=== PATIENT | female | born 1970 | race Caucasian/White ===

== ENCOUNTER 2017-05-13 14:51 | Emergency (ER) | payer OTHER, SELFPAY ==
[2017-05-13 14:56] VITALS: BP 127/76; PULSE 142; RESP 16; TEMP 37.3; O2SAT 97; BMI 23.8
--- NOTE | 2017-05-13 15:07 | HMH.EDGENADL ---
ED Disposition Clinical Impression: Acute sinusitis Qualifiers: Sinusitis location: other Recurrence: not specified as recurrent Qualified Code(s): J01.80 - Other acute sinusitis Disposition: Home, Self-Care Condition on Discharge: Good Instructions: DI for Sinusitis, DI for Lumbar Puncture Additional Instructions: Tylenol for pain. Additional instructions for HEADACHE: See your physician as soon as possible for further evaluation. Return immediately if worsening headache, vomiting, problems with vision or speech, fever, numbness or weakness of the extremities, neck pain or stiffness. Prescriptions: cefUROXime axetil [Cefuroxime 500mg Tab] 500 mg PO BID #20 tab - Critical Care Critical Care Time: No Attestation: On , the high probability of a clinically significant, sudden or life threatening deterioration of the following system(s) required my full and direct attention, intervention and personal management. The time I documented below is in addition to time spent performing reported procedures but includes the following listed in this critical care notation. Medical Decision Making Vital Signs: 05/13/17 14:56 05/13/17 18:19 05/13/17 18:43 Temperature 99.2 F 98.3 F 98.3 F Temperature Source Oral Temporal Artery Scan Oral Pulse Rate 109 H Pulse Rate [Right Brachial] 142 H 108 H Respiratory Rate 16 16 20 Blood Pressure 110/71 Blood Pressure [Right Arm] 127/76 110/71 Blood Pressure Mean [Right Arm] 93 84 Blood Pressure Source Automatic Cuff Blood Pressure Source [Right Arm] Automatic Cuff Automatic Cuff Blood Pressure Position Sitting Blood Pressure Position [Right Arm] Sitting Sitting 02 Sat by Pulse Oximetry 97 100 Oxygen Delivery Method Room Air Room Air Room Air - Lab Data Lab Results 05/13/17 15:06: WBC 6.9, RBC 4.16 L, Hgb 13.7, Hct 41.8, MCV 100.4 H, MCH 33.0 H, MCHC 32.9, RDW 12.3, Plt Count 177, MPV 7.8, Neut % (Auto) 83.4 H, Lymph % (Auto) 9.1 L, [place] % (Auto) 4.9, Eos % (Auto) 2.1, Baso % (Auto) 0.4, Neut # (Auto) 5.7, Lymph # (Auto) 0.6 L, [place] # (Auto) 0.3, Eos # (Auto) 0.2, Baso # (Auto) 0.0 05/13/17 15:06: Sodium 138, Potassium 3.4 L, Chloride 105, Carbon Dioxide 24, Anion Gap 12.4, BUN 7, Creatinine 1.01, Estimated Creat Clear 66, Estimated GFR 60, Est GFR ( Amer) 72, Glucose 141 H, Calcium 8.6, Total Bilirubin 0.4, AST 10 L, ALT 21, Alkaline Phosphatase 102, Total Protein 7.1, Albumin 3.4, Globulin 3.7 H, Albumin/Globulin Ratio 0.9 L 05/13/17 15:06: Lactic Acid 1.6 05/13/17 15:06: Influenza Type A Ag Negative, Influenza Type B Ag Negative, Group A Strep Rapid Negative 05/13/17 16:30: Urine Color Yellow, Urine Appearance Clear, Urine pH 6.5, Ur Specific [place] 1.020, Urine Protein Negative, Urine Glucose (UA) Negative, Urine Ketones Negative, Urine Blood Negative, Urine Nitrate Negative, Urine Bilirubin Negative, Urine Urobilinogen 0.2, Ur Leukocyte Esterase Negative, Urine RBC Occasional, Urine WBC None, Ur Squamous Epith Cells Occasional, Urine Bacteria Trace, Urine Mucus 2+ 05/13/17 16:50: CSF Volume 1, CSF Appearance Clear, CSF WBC 2, CSF RBC 68, CSF Mononuclear WBCs % TNP, CSF Polynuclear WBCs % TNP 05/13/17 16:50: CSF Glucose 63, CSF Total Protein 53.1 H 05/13/17 16:50: CSF Volume 1, CSF Appearance Clear, CSF WBC 1, CSF RBC 0, CSF Mononuclear WBCs % TNP, CSF Polynuclear WBCs % TNP Result diagrams: 05/13/17 15:06 05/13/17 15:06 Orders (Tests/Meds): ED MEDICATIONS Discontinued Medications Generic Name Dose Route Start Last Admin Trade Name Freq PRN Reason Stop Dose Admin Acetaminophen 1,000 mg 05/13/17 15:23 05/13/17 15:30 Acetaminophen 325mg Tab PO 05/13/17 15:24 1,000 mg ONCE ONE Administration Sodium Chloride 1,000 mls @ 999 mls/hr 05/13/17 15:15 05/13/17 15:11 Sod Chloride 0.9% 1000ml Bag IV 05/13/17 16:15 999 mls/hr .Q1H1M [place] Administration Ceftriaxone Sodium 1 gm/ 50 mls @ 100 mls/hr 05/13/17 17:30 05/13/17 17:39 Sodium C
--- NOTE | 2017-05-13 15:08 | XR_ITS ---
XR chest 2V HISTORY: Fever cough and congestion ITS.REASON: FLU LIKE SYMPTOMS ORDERING PHYSICIAN: Erickson Woodard MD PATIENT AGE: 46 years COMPARISON: None available FINDINGS: The cardiomediastinal silhouette and pulmonary vascularity are within normal limits. The lungs are clear without infiltrates, suspicious nodules, or pleural effusions. No acute bony abnormalities. IMPRESSION: Negative chest, no acute finding
--- NOTE | 2017-05-13 15:20 | CT_ITS ---
CT head/brain wo con HISTORY: ITS.REASON: headache ORDERING PHYSICIAN: Erickson Woodard MD PATIENT AGE: 46 years COMPARISON: None TECHNIQUE: Axial images obtained without contrast. Brain and bone windows reviewed. FINDINGS: No midline shift, mass effect, intracranial hemorrhage, hydrocephalus, or extra-axial fluid collection is evident. The calvarium has an unremarkable appearance. No mastoid effusion. There is opacification of the right aspect of the sphenoid sinus with moderate mucosal thickening of the left aspect of the sphenoid sinus and opacification of left ethmoid air cells.. IMPRESSION: 1. No acute intracranial findings. 2. Sinusitis.
[2017-05-13 15:21] LABS: Basophils % 0.4 % (0.1-2.0); Eosinophils # 0.2 K/mm3 (0.0-0.4); Eosinophils % 2.1 % (0.1-12.0); Hematocrit 41.8 % (37.0-47.0); Hemoglobin 13.7 g/dL (12.2-16.2); Lymphocytes # 0.6 K/mm3 (0.7-4.5); Lymphocytes % 9.1 K/mm3 (10-50); Mean Corpuscular HGB Conc 32.9 g/dL (31.8-35.4); Mean Corpuscular Volume 100.4 fl (81-99); Mean Platelet Volume 7.8 fl (7.4-10.4); Monocytes # 0.3 K/mm3 (0.1-1.0); Monocytes % 4.9 % (1.7-9.3); Neutrophils # 5.7 K/mm3 (1.8-7.8); Neutrophils % 83.4 % (37.0-80.0); Platelet Count 177 K/mm3 (142-424); Red Blood Count 4.16 M/mm3 (4.20-5.40); Red Cell Distribution Width 12.3 % (11.5-17.5); White Blood Count 6.9 K/mm3 (4.8-10.8)
[2017-05-13 15:33] LABS: Alanine Aminotransferase 21 U/L (12-78); Albumin Level 3.4 gm/dL (3.4-5.0); Albumin/Globulin Ratio 0.9 (1.1-1.8); Alkaline Phosphatase 102 U/L (46-116); Anion Gap 12.4 mEq/L (5-15); Aspartate Amino Transferase 10 U/L (15-37); Bilirubin,Total 0.4 mg/dL (0.2-1.0); Blood Urea Nitrogen 7 mg/dL (7-18); Calcium 8.6 mg/dL (8.5-10.1); Carbon Dioxide 24 mmol/L (21.0-32.0); Chloride 105 mmol/L (98-107); Creatinine Clearance Estimated 66 mL/min (0-300); Creatinine,Serum 1.01 mg/dL (0.55-1.02); Estimated Glomerular Filt Rate 60 ml/min (>60); GFR (African American) 72 ML/MIN (>60); Globulin 3.7 gm/dl (1.3-3.2); Glucose 141 mg/dL (74-106); Potassium 3.4 mmoL/L (3.5-5.1); Sodium 138 mmol/L (136-145); Total Protein,Serum 7.1 gm/dL (6.4-8.2)
[2017-05-13 15:35] LABS: Strep Scrn Group A (Rapid) Negative (Negative)
[2017-05-13 15:36] LABS: Lactic Acid 1.6 mmol/L (0.4-2.0)
[2017-05-13 16:32] LABS: Microscopic, Urine URINE MICROSCOPIC (MICROSCOPIC)
[2017-05-13 16:39] LABS: Appearance,Urine CLEAR (Clear); Bilirubin,Urine Negative (Negative); Blood, Urine Negative (Negative); Color,Urine YELLOW (Yellow); Glucose,Urine (UA) Negative (Negative); Ketones,Urine Negative (Negative); Leukocyte Esterase,Urine Negative (Negative); Nitrate,Urine Negative (Negative); PH,Urine 6.5 (5.0-8.5); Protein,Urine Negative (Negative); Urobilinogen,Urine 0.2 EU/dl (0.2)
[2017-05-13 17:27] LABS: RBC,Urine Occasional #/hpf (0-3); Squamous Epithelial Cell,Urine Occasional #/hpf (0-5)
[2017-05-13 17:28] LABS: Bacteria,Urine Trace /lpf; Mucus,Urine 2+ /lpf
[2017-05-13 17:39] LABS: Appearance,CSF Clear (Clear); Volume,CSF 1 mL
[2017-05-13 17:40] LABS: Appearance,CSF Clear (Clear); Red Blood Cell,CSF 68 cells/uL (0); Volume,CSF 1 mL; White Blood Cell,CSF 2 cells/uL (0-5)
[2017-05-13 17:41] LABS: Red Blood Cell,CSF 0 cells/uL (0); White Blood Cell,CSF 1 cells/uL (0-5)
[2017-05-13 17:43] LABS: Glucose,CSF 63 mg/dL (40-70); Total Protein,CSF 53.1 mg/dL (15-45)
[2017-05-13 18:19] VITALS: BP 110/71; PULSE 108; RESP 16; TEMP 36.8; O2SAT 100
[2017-05-13 18:43] VITALS: BP 110/71; PULSE 109; RESP 20; TEMP 36.8; O2SAT 98
== END 2017-05-13 18:42 | disposition home or self-care (01) ==
PROVIDERS: Emergency Provider Emergency Medicine
DX: J01.80 Other acute sinusitis (principal)
CPT/HCPCS: 62272; 62270; 70450; 71046; 80053; 81001; 82945; 83605; 84155; 85025; 87040; 87070; 87205; 87275; 87276; 87430; 89051; 96365; 96367; 99284

== ENCOUNTER 2017-05-17 10:24 | Emergency (ER) | payer OTHER, SELFPAY ==
[2017-05-17 10:26] VITALS: BP 108/50; PULSE 63; RESP 14; TEMP 36.9; O2SAT 100; BMI 23.8
[2017-05-17 12:26] VITALS: BP 102/61; PULSE 68; RESP 20; O2SAT 99
--- NOTE | 2017-05-17 14:38 | CT_ITS ---
CT cervical spine wo con CLINICAL INDICATION: ITS.REASON: neck pain ORDERING PHYSICIAN: Miky Samaniego MD PATIENT AGE: 46 years COMPARISON: None FINDINGS: There is normal alignment. There is slight reversal of cervical lordosis which could be due to patient positioning or muscle spasm. No fracture or dislocation. No lytic or blastic change. C2-C3, C3-C4, C4-C5 is an unremarkable appearance. Minimal degenerative disc disease at C5-C6 with slight decrease in the disc space. C6-C7 and C7-T1 have an unremarkable appearance. No acute finding lung apices. The right lobe of the thyroid gland is slightly enlarged. There are scattered small lymph nodes in the neck. There is opacification of the right sphenoid sinus and moderate mucosal thickening of the left sphenoid sinus as well as opacified left ethmoid air cells. IMPRESSION: 1. Mild degenerative disc disease C5-C6. 2. Slight reversal cervical lordosis patient positioning or muscle abdomen. 3. Sinusitis
--- NOTE | 2017-05-17 16:16 | HMH.EDNECK ---
ED Disposition Clinical Impression: Disc disorder of cervical region Disposition: Home, Self-Care Condition on Discharge: Good Instructions: Degenerative Disc Disease, DI for Neck Pain Additional Instructions: Please take the medications prescribed as directed, follow-up with 1 of the orthopedic surgeons listed (Dr. Grady, Dr. Zelaya or Dr. Saavedra) at your earliest convenience. Please ask your family physician to refer him to physical therapy. Prescriptions: Cyclobenzaprine HCl [Flexeril 10mg tablet] 10 mg PO TID 30 Days #90 tab Referrals: Adama Grady [Referring] - Alexx Moss MD [Staff Physician] - El Saavedra MD [Staff Physician] - Time of Disposition: 16:17 - Critical Care Critical Care Time: No Attestation: On 05/17/17, the high probability of a clinically significant, sudden or life threatening deterioration of the following system(s) required my full and direct attention, intervention and personal management. The time I documented below is in addition to time spent performing reported procedures but includes the following listed in this critical care notation. Medical Decision Making - Medical Records Medical records reviewed: Yes: I reviewed the patient's medical records. Vital Signs: 05/17/17 10:26 05/17/17 12:26 05/17/17 16:46 Temperature 98.5 F 98.0 F Temperature Source Oral Oral Pulse Rate 58 L Pulse Rate [Right Brachial] 63 68 Respiratory Rate 14 20 20 Blood Pressure 106/52 Blood Pressure [Right Arm] 108/50 102/61 Blood Pressure Mean [Right Arm] 69 74 Blood Pressure Source Automatic Cuff Blood Pressure Source [Right Arm] Automatic Cuff Automatic Cuff Blood Pressure Position Sitting Blood Pressure Position [Right Arm] Sitting Sitting 02 Sat by Pulse Oximetry 100 99 Oxygen Delivery Method Room Air Room Air Room Air - CT Data CT Scan: C-Spine Time Received: 16:[address] Reviewed: Yes: I have reviewed the patient's CT results Findings Narrative: C5-C6 disk degeneration - Christian Inquiry Pt receiving controlled substance: No - Reevaluation(s) Time: 16:10 Reevaluation #1: Advised patient to follow-up with an orthopedic surgeon, prescribe her Flexeril. At this time she has no neurological deficits in upper extremities, however MRI of the C-spine would be beneficial for diagnosis. Neck Pain/Injury HPI - General Chief Complaint: Neck Pain/Injury Stated Complaint: neck and spine pain, no ao Limitations: No Limitations - History of Present Illness HPI Narrative: Patient is a 46-year-old lady presented emergency room with neck pain off and on for the past 2 weeks. She states the pain only occurs in upright position, after 40 minutes of being erect. She denies any neurological deficit in upper extremities, any trauma. She was here a few days ago with same complaint, the time she underwent an LP, blood work, CT scan head and a chest X ray. 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 MD complaint: neck pain Onset (ago): week(s) (2) Associated symptoms: none - Related Data Home Medications Medication Instructions Recorded Confirmed Cholecalciferol (Vitamin D3) 8,000 unit PO DAILY 05/13/17 05/13/17 [Vitamin D3 1,000 Unit Cap] Previous Rx's Medication Instructions Recorded cefUROXime axetil [Cefuroxime 500 mg PO BID #20 tab 05/13/17 500mg Tab] Cyclobenzaprine HCl [Flexeril 10mg 10 mg PO TID 30 Days #90 tab 05/17/17 tablet] Allergies Allergy/AdvReac Type Severity Reaction Status Date / Time Penicillins Allergy Verified 05/13/17 15:05 [facility] History I have reviewed the patient's past medical history: Yes Medical History: Denies:: Cancer, Diabetes Mellitus Type 1, Diabetes Mellitus Type 2, Internal Pacemaker, MRSA Other Surgeries: No: Pacemaker Amputation: No Fractures: No - *Social History Smoking Status: Current every day smoker Tobacco Type: cigarette
[2017-05-17 16:46] VITALS: BP 106/52; PULSE 58; RESP 20; TEMP 36.7; O2SAT 98
== END 2017-05-17 16:48 | disposition home or self-care (01) ==
PROVIDERS: Emergency Provider Emergency Medicine; PCP Family Medicine
DX: M50.30 Other cervical disc degeneration, unspecified cervical region (principal); Z79.899 Other long term (current) drug therapy; Z88.0 Allergy status to penicillin; Z72.0 Tobacco use
CPT/HCPCS: 72125; 99281

== ENCOUNTER 2020-09-04 21:27 | Emergency (ER) | payer OTHER, SELFPAY ==
[2020-09-04 21:36] VITALS: BP 144/79; PULSE 83; RESP 18; TEMP 36.9; O2SAT 98; BMI 25.6
--- NOTE | 2020-09-04 21:47 | CT_ITS ---
PROCEDURE INFORMATION: Exam: CT Abdomen And Pelvis With Contrast Exam date and time: 09/04/2020 9:47 PM Age: 50 years old Clinical indication: Abdominal pain; Generalized; Additional info: Abd pain TECHNIQUE: Imaging protocol: Computed tomography of the abdomen and pelvis with contrast. Radiation optimization: All CT scans at this facility use at least one of these dose optimization techniques: automated exposure control; mA and/or kV adjustment per patient size (includes targeted exams where dose is matched to clinical indication); or iterative reconstruction. Contrast material: ISOVUE; Contrast volume: 75 ml; Contrast route: IV; COMPARISON: No relevant prior studies available. FINDINGS: Liver: Normal. No mass. Gallbladder and bile ducts: Normal. No calcified stones. No ductal dilation. Pancreas: Normal. No ductal dilation. Spleen: Normal. No splenomegaly. Adrenal glands: Normal. No mass. Kidneys and ureters: Normal. No hydronephrosis. Stomach and bowel: Sigmoid colon diverticula. There is abnormal wall thickening involving the proximal small bowel loops. Appendix: No evidence of appendicitis. Intraperitoneal space: Unremarkable. No free air. No significant fluid collection. Vasculature: Unremarkable. No abdominal aortic aneurysm. Lymph nodes: Retroperitoneal adenopathy. Urinary bladder: Unremarkable as visualized. Reproductive: Bilateral tubal ligation clips noted. Bones/joints: Unremarkable. No acute fracture. Soft tissues: Unremarkable. IMPRESSION: Abnormal wall thickening involving the proximal small bowel loops concerning for enteritis.
--- NOTE | 2020-09-04 22:02 | HMH.EDNVD ---
ED Disposition Clinical Impression: Abdominal pain Qualifiers: Abdominal location: epigastric Qualified Code(s): R10.13 - Epigastric pain Disposition: Home, Self-Care Condition on Discharge: Good Instructions: DI for Acute Abdominal Pain Additional Instructions: use meds and see pcp for follow up Prescriptions: Pantoprazole Sodium [Protonix 40mg tablet] 40 mg PO HS #30 tab Transmission Status: Pending to [id number] Referrals: Destiny Castro [Primary Care Provider] - - Critical Care Critical Care Time: No Attestation: On 09/04/20, the high probability of a clinically significant, sudden or life threatening deterioration of the following system(s) required my full and direct attention, intervention and personal management. The time I documented below is in addition to time spent performing reported procedures but includes the following listed in this critical care notation. Medical Decision Making - Medical Records Medical records reviewed: Yes: I reviewed the patient's medical records. - Christian Inquiry Pt receiving controlled substance: No Vital Signs: 09/04/20 21:36 Temperature 98.5 F Temperature Source Oral Pulse Rate [Right] 83 Respiratory Rate 18 Blood Pressure [Right Arm] 144/79 H Blood Pressure Mean [Right Arm] 100 Blood Pressure Source [Right Arm] Automatic Cuff Blood Pressure Position [Right Arm] Sitting 02 Sat by Pulse Oximetry 98 Oxygen Delivery Method Room Air - Lab Data Lab results reviewed: Yes: I reviewed the patient's lab results. Lab Results 09/04/20 21:54: Urine Color Yellow, Urine Appearance Sl cloudy, Urine pH 5.5, Ur Specific [place] >= 1.030, Urine Protein Negative, Urine Glucose (UA) Negative, Urine Ketones Negative, Urine Blood Trace-i, Urine Nitrate Negative, Urine Bilirubin Negative, Urine Urobilinogen 0.2, Ur Leukocyte Esterase Negative, Urine WBC Occasional, Ur Squamous Epith Cells 3-5, Urine Bacteria Trace, Urine Mucus 1+ 09/04/20 21:54: WBC 11.1 H, RBC 4.38, Hgb 14.7, Hct 43.5, MCV 99.4 H, MCH 33.6 H, MCHC 33.8, RDW 12.5, Plt Count 229, MPV 7.7, Neut % (Auto) 52.6, Lymph % (Auto) 41.2, [place] % (Auto) 4.3, Eos % (Auto) 1.4, Baso % (Auto) 0.5, Neut # (Auto) 5.8, Lymph # (Auto) 4.6 H, [place] # (Auto) 0.5, Eos # (Auto) 0.2, Baso # (Auto) 0.1, ESR 25 H 09/04/20 21:54: Sodium 136, Potassium 3.6, Chloride 106, Carbon Dioxide 25, Anion Gap 8.6, BUN 11, Creatinine 1.00, Estimated Creat Clear 69, Estimated GFR 59, Est GFR ( Amer) 72, Glucose 103 H, Calcium 9.1, Total Bilirubin 0.4, AST 29, ALT 18, Alkaline Phosphatase 107, C-Reactive Protein 0.8, Total Protein 7.2, Albumin 4.1, Globulin 3.1, Albumin/Globulin Ratio 1.3, Amylase 149 H, Lipase 173, Procalcitonin 0.032 09/04/20 22:00: Troponin I < 0.01 Result diagrams: 09/04/20 21:54 09/04/20 21:54 Orders (Tests/Meds): ED MEDICATIONS Generic Name Dose Route Start Last Admin Trade Name Freq PRN Reason Stop Dose Admin Sodium Chloride 1,000 mls @ 999 mls/hr 09/04/20 22:00 09/04/20 22:03 Sod Chlor 0.9% 1000ml Bag IV 09/04/20 23:00 999 mls/hr .Q1H1M [place] Administration Sodium Chloride 8 ml 09/04/20 21:46 Sodium Chloride 0.9% 10ml Vial IV 10/04/20 21:45 NEEDED PRN dilute pepcid Discontinued Medications Generic Name Dose Route Start Last Admin Trade Name Freq PRN Reason Stop Dose Admin Belladonna Alkaloids 60 ml 09/04/20 23:00 09/04/20 23:01 Gi Cocktail 60ml Udc PO 09/04/20 23:01 60 ml ONCE ONE Administration Famotidine 20 mg 09/04/20 21:46 09/04/20 22:03 Famotidine 20mg/2ml Vial IV 09/04/20 21:47 20 mg ONCE ONE Administration Iopamidol 75 ml 09/04/20 22:50 09/04/20 22:51 Iopamidol-370 (76%);100ml Bottle IV 09/04/20 22:51 75 ml ONCE ONE Administration Ketorolac Tromethamine 30 mg 09/04/20 21:46 09/04/20 22:03 Ketorolac 30mg/Ml Vial IV 09/04/20 21:47 30 mg ONCE ONE Administration Metoclopramide HCl 10 mg 09/04/20 21:46 09/04/20 22
[2020-09-04 22:08] LABS: Microscopic, Urine URINE MICROSCOPIC (MICROSCOPIC)
[2020-09-04 22:10] LABS: Basophils # 0.1 K/mm3 (0-0.2); Basophils % 0.5 % (0.1-2.0); Eosinophils # 0.2 K/mm3 (0.0-0.4); Eosinophils % 1.4 % (0.1-12.0); Hematocrit 43.5 % (37.0-47.0); Hemoglobin 14.7 g/dL (12.2-16.2); Lymphocytes # 4.6 K/mm3 (0.7-4.5); Lymphocytes % 41.2 % (10-50); Mean Corpuscular HGB Conc 33.8 g/dL (31.8-35.4); Mean Corpuscular Hemoglobin 33.6 pg (27.0-31.2); Mean Corpuscular Volume 99.4 fl (81-99); Mean Platelet Volume 7.7 fl (7.4-10.4); Monocytes # 0.5 K/mm3 (0.1-1.0); Monocytes % 4.3 % (1.7-9.3); Neutrophils # 5.8 K/mm3 (1.8-7.8); Neutrophils % 52.6 % (37.0-80.0); Platelet Count 229 K/mm3 (142-424); Red Blood Count 4.38 M/mm3 (4.20-5.40); Red Cell Distribution Width 12.5 % (11.5-17.5); White Blood Count 11.1 K/mm3 (4.8-10.8)
[2020-09-04 22:14] LABS: Appearance,Urine SL CLOUDY (Clear); Bilirubin,Urine Negative (Negative); Blood, Urine TRACE-I (Negative); Color,Urine YELLOW (Yellow); Glucose,Urine (UA) Negative (Negative); Ketones,Urine Negative (Negative); Leukocyte Esterase,Urine Negative (Negative); Nitrate,Urine Negative (Negative); PH,Urine 5.5 (5.0-8.5); Protein,Urine Negative (Negative); Specific Gravity, Urine >= 1.030 (1.005-1.030); Urobilinogen,Urine 0.2 EU/dl (0.2)
[2020-09-04 22:17] LABS: Alanine Aminotransferase 18 U/L (12-78); Albumin Level 4.1 g/dl (3.5-5.0); Albumin/Globulin Ratio 1.3 (1.1-1.8); Alkaline Phosphatase 107 U/L (38-126); Amylase 149 U/L (30-110); Anion Gap 8.6 mEq/L (5-15); Aspartate Amino Transferase 29 U/L (14-36); Bilirubin,Total 0.4 mg/dl (0.2-1.3); Blood Urea Nitrogen 11 mg/dl (7-17); Calcium 9.1 mg/dl (8.4-10.2); Carbon Dioxide 25 mmol/L (22.0-30.0); Chloride 106 mmol/L (98-107); Creatinine Clearance Estimated 69 mL/min (50-200); Estimated Glomerular Filt Rate 59 ml/min (>60); GFR (African American) 72 ML/MIN (>60); Globulin 3.1 g/dL (1.3-3.2); Glucose 103 mg/dl (74-100); Lipase 173 U/L (23-300); Potassium 3.6 mmoL/L (3.5-5.1); Sodium 136 mmol/L (136-145); Total Protein,Serum 7.2 g/dl (6.3-8.2)
[2020-09-04 22:22] LABS: C-Reactive Protein 0.8 mg/L (0-4)
--- NOTE | 2020-09-04 22:31 | ECG_ITS ---
APPROVED REPORT Exam: Resting ECG HR:65 bpm ECG Measurements Heart Rate 65 AXES PA 178 P 53 QRSd 88 QRS 62 QT 420 T 53 QTc 436 Conclusion Normal sinus rhythm Normal ECG Electronically signed by : Quique Campos, 09/06/2020 07:26:14
[2020-09-04 22:33] LABS: Procalcitonin 0.032 ng/mL (0.0-2.0)
[2020-09-04 22:35] LABS: Bacteria,Urine Trace /lpf; Mucus,Urine 1+ /lpf; WBC,Urine Occasional #/hpf (0-3)
[2020-09-04 22:36] LABS: Erythrocyte Sedimentation Rate 25 mm/hr (0-20)
[2020-09-04 22:37] LABS: Troponin I < 0.01 ng/ml (0.00-0.034)
[2020-09-04 23:46] VITALS: BP 115/63; PULSE 63; O2SAT 99
[2020-09-05] VITALS: BP 98/63; PULSE 59; O2SAT 97
[2020-09-05 00:08] VITALS: BP 99/56; PULSE 66; O2SAT 97
[2020-09-05 00:27] VITALS: BP 100/58; PULSE 68; RESP 18; TEMP 36.9; O2SAT 98
== END 2020-09-05 00:29 | disposition home or self-care (01) ==
PROVIDERS: Emergency Provider Emergency Medicine; PCP Family Medicine
DX: R10.13 Epigastric pain (principal); F17.210 Nicotine dependence, cigarettes, uncomplicated; Z88.0 Allergy status to penicillin
CPT/HCPCS: 74177; 80053; 81001; 82150; 83690; 84145; 84484; 85025; 85651; 86140; 93005; 96365; 96375; 99283; J2405; Q9967

== ENCOUNTER 2020-11-24 10:01 | Emergency (ER) | payer OTHER, SELFPAY ==
[2020-11-24 10:03] VITALS: BP 121/75; PULSE 76; RESP 18; TEMP 37.4; O2SAT 100; BMI 25.6
--- NOTE | 2020-11-24 10:15 | XR_ITS ---
PROCEDURE: XR ELBOW RT MIN 3V CLINICAL INDICATION: trauma Pain COMPARISON: No exams were available for comparison FINDINGS: No fracture or dislocation. No lytic or blastic change. There is normal mineralization. The joint spaces are well-preserved. No significant degenerative/arthritic changes. No erosive changes evident. Other findings:None. IMPRESSION: No acute findings. Dictated by: Arben Trejo MD 11/24/2020 10:28 Arben Trejo MD in [place] 11/24/2020 10:28
--- NOTE | 2020-11-24 10:44 | HMH.EDEXTP ---
ED Disposition Clinical Impression: Biceps tendinitis on right Disposition: Home, Self-Care Condition on Discharge: Good Instructions: DI for Tendinitis Referrals: Destiny Castro [Primary Care Provider] - El Saavedra MD [Staff Physician] - - Critical Care Critical Care Time: No Attestation: On 11/24/20, the high probability of a clinically significant, sudden or life threatening deterioration of the following system(s) required my full and direct attention, intervention and personal management. The time I documented below is in addition to time spent performing reported procedures but includes the following listed in this critical care notation. Medical Decision Making - Medical Records Medical records reviewed: Yes: I reviewed the patient's medical records. - Christian Inquiry Pt receiving controlled substance: No Vital Signs: 11/24/20 10:03 Temperature 99.3 F Temperature Source Oral Pulse Rate [Left Radial] 76 Respiratory Rate 18 Blood Pressure [Right Arm] 121/75 Blood Pressure Mean [Right Arm] 90 Blood Pressure Source [Right Arm] Automatic Cuff Blood Pressure Position [Right Arm] Sitting 02 Sat by Pulse Oximetry 100 Oxygen Delivery Method Room Air - Radiology Data #1 Image(s): Elbow Image Reviewed: Yes I reviewed the patient's radiology results, Yes I reviewed the patient's radiology image, Yes I have reviewed radiologist's interpretation Preliminary Findings: Normal/NAD, No Fracture Seen - Reevaluation(s) Time: 10:46 Reevaluation #1: Patient has no obvious fracture dislocation on imaging studies. Patient be set up for orthopedics for follow-up. Repeat exam shows good range of motion. Patient given strict return precautions. Verbalized understanding. Medical Decision Narrative: 50-year-old female presented to the emergency department with some right elbow pain. I do believe the patient's injuries are likely secondary to to sprain versus tendinitis of bicep. Patient is good range of motion. Imaging obtained. Extremity Problem HPI - General Chief complaint: Extremity Injury, Upper Stated complaint: PossibleTorn ligaments right elbow Time Seen by Provider: 11/24/20 10:05 Mode of Arrival: Ambulatory Limitations: No Limitations Description of Symptoms (Recalled from ER Triage Doc. by RN): c/o right elbow pain for over a week, states she was tearing up christian aramis and hurt it then. - History of Present Illness HPI Narrative: 50-year-old female presented to the emergency department with some right elbow pain. Patient is having symptoms for last 2 weeks. Patient states that she was ripping up some old aramis of a house when she started having some discomfort. She states that it is localized to the top of the right elbow. She denies any direct trauma. Pain is worse when she tries to flex or extend. She denies any other injuries. She does not have any fevers or chills. No headache or change in vision. No focal weakness. No chest pain shortness of breath. Abdominal pain or vomiting. - Related Data Home Medications Medication Instructions Recorded Confirmed Cholecalciferol (Vitamin D3) 8,000 unit PO DAILY 05/13/17 08/18/20 [Vitamin D3 1,000 Unit Cap] Previous Rx's Medication Instructions Recorded permethrin 5 % topical cream 1 applic TOPICAL Q14D 0 Days #60 g 08/18/20 Pantoprazole Sodium [Protonix 40mg 40 mg PO HS #30 tab 09/05/20 tablet] Allergies Allergy/AdvReac Type Severity Reaction Status Date / Time Penicillins Allergy Verified 08/18/20 13:17 [facility] History - Hepatitis A Screen Drug use history?: No High risk sexual behaviors?: No History of sexually transmitted infection?: No Currently employed?: No Childcare worker?: No Do you have indoor plumbing?: Yes Do you have electricity?: Yes Attestation statement:: This patient has been screened for Hepatitis A risk factors. I have reviewed the patient's past medical history:
[2020-11-24 10:52] VITALS: BP 113/84; PULSE 83; RESP 18; TEMP 37.4; O2SAT 99
== END 2020-11-24 10:56 | disposition home or self-care (01) ==
PROVIDERS: Emergency Provider Emergency Medicine; PCP Family Medicine
DX: M75.21 Bicipital tendinitis, right shoulder (principal); F17.210 Nicotine dependence, cigarettes, uncomplicated; X50.0XXA Overexertion from strenuous movement or load, initial encounter
CPT/HCPCS: 73080; 99282

== ENCOUNTER → 2020-12-10 09:43 | Outpatient (CLI) | payer OTHER, SELFPAY ==
--- NOTE | 2020-12-10 10:03 | MR_ITS ---
PROCEDURE INFORMATION: Exam: MR Right Upper Extremity Joint Without Contrast; Elbow Exam date and time: 12/10/2020 10:03 AM Age: 50 years old Clinical indication: Pain; Elbow; Right; Additional info: Evaluate for bicep tear. Elbow pain x2wks. Pain when trying to use muscles. No injury or trauma. Prior x-ray 11-24-20 TECHNIQUE: Imaging protocol: MR of the Right upper extremity without contrast. Exam focused on the elbow. COMPARISON: CR XR ELBOW RT MIN 3V 11/24/2020 10:16 AM FINDINGS: Bones and cartilage: No acute marrow edema. No visualized acute fracture or dislocation of the elbow. A linear focus of T2 hyperintensity is identified within the bone marrow of the proximal ulna, suggestive of a nutrient vessel. Joint spaces: Small radiocapitellar effusion. Minimal fluid within the trochlear-olecranon joint. Ulnar (medial) collateral ligament: Unremarkable. No tear. Radial collateral ligament of the elbow: Unremarkable. No tear. Annular ligament of the radius: A small focus of fluid is seen anterior to the annular ligament, although tear is not well-defined. Tendon of the biceps brachii: There is a tiny focus of T2 hyperintensity at the distal attachment of the biceps brachii tendon, suggestive of partial tear. Tendon of the brachialis: Heterogeneous signal intensity of the distal brachialis tendon, consistent with tendinosis. Triceps tendon: No tear. Common flexor tendon: No tear. Common extensor tendon: No tear. Muscles: No visualized acute abnormality. Soft tissues: Unremarkable. IMPRESSION: 1. Suggested partial tear of the distal biceps brachii tendon. 2. Tendinosis of the brachialis tendon. 3. Small radiocapitellar effusion. 4. Additional findings described above.
== END ==
PROVIDERS: PCP Family Medicine; Visit Provider Orthopaedic Surgery
DX: M25.521 Pain in right elbow (principal); M75.21 Bicipital tendinitis, right shoulder
CPT/HCPCS: 73221

== ENCOUNTER 2021-01-07 11:00 | Outpatient (RCR) | payer OTHER, SELFPAY ==
--- NOTE | 2020-12-22 11:45 | HMH.OTOPEV ---
OT Inpatient Evaluation Rehab OT Outpatient Eval Start: 12/22/20 11:28 Freq: Status: Active Protocol: Document 12/22/20 11:29 [facility] (Rec: 12[facility]22/20 11[facility]45 [id number] Electronically Signed By Rojas Cohen OT 12/22/20 11:29 Outpatient Therapy Subjective History Subjective History Pt is a 50 year old female who reports to therapy for initial evaluation to right elbow. 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 Pt had to use a pry bar and remove nails out of plywood continuously for ~ 2 hours while tearing up a floor. Eventually she began having pain with the repetitive motion/weight and had to stop. After 2 weeks of pain, pt did go to ER. X-rays were negative for fx or dislocation . Pt was set up to see ortho. Pt saw ortho last week and had an MRI of right elbow on . MRI suggests a partial tear to the distal biceps brachii tendon. Pt is right hand dominant and has most difficulty with gripping objects now. She does not have pain at right elbow, unless she tries to use it. Actively moving the eblow does not cause pain, but when weight is added she has pain. Pt's AROM is WNL, but strength is declined. 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 Pt will continue to be seen twice a week in order to address all deficits. STG Policy Writer Typist strength R hand: 80 lbs LTG Policy Writer Typist strength R hand: 90 lbs Chief Complaint Pain,Weakness,Decreased Policy Writer Typist Strength Symptom Type Sharp,Stabbing Symptoms Relieved By Rest/Positioning Symptoms Aggravated By Physical Activity,Lifting Prior Functional Limitations
== END 2021-01-07 11:05 | disposition home or self-care (01) ==
LOC: OT 11:00
PROVIDERS: PCP Family Medicine; Visit Provider Orthopaedic Surgery
DX: S46.201D Unspecified injury of muscle, fascia and tendon of other parts of biceps, right arm, subsequent encounter (principal); M25.521 Pain in right elbow
CPT/HCPCS: 97035; 97110; 97140; 97166

== ENCOUNTER 2021-05-25 08:36 | Emergency (ER) | payer OTHER, SELFPAY ==
[2021-05-25 08:37] VITALS: BP 103/66; PULSE 120; RESP 20; TEMP 37.3; O2SAT 98; BMI 25.6
[2021-05-25 09:15] VITALS: BP 101/64; PULSE 121; O2SAT 95
--- NOTE | 2021-05-25 09:20 | HMH.EDGENADL ---
ED Disposition Clinical Impression: Cervical radiculopathy Disposition: Home, Self-Care Condition on Discharge: Good Instructions: DI for Cervical Radiculopathy Additional Instructions: Please follow up with your primray care physician in 2-3 days for further management. Discuss with primary care team regarding physical therapy to assist with chronic neck pain. Please take the lidocaine patches and flexeril as prescribed. Return for any worsening symptoms such as fecal incontinence, urinary retention, weakness or numbness of limbs or any other concerning symptoms. Prescriptions: Cyclobenzaprine HCl [Flexeril 10mg tablet] 10 mg PO Q8HP PRN 30 Days #90 tab PRN Reason: Muscle Spasm Transmission Status: Sent to [facility] Lidocaine [Lidocaine 5% patch] 1 patch TP DAILY 7 Days #14 patch Transmission Status: Sent to [facility] Referrals: Destiny Castro [Primary Care Provider] - Time of Disposition: 10:05 - Critical Care Critical Care Time: No Attestation: On 05/25/21, the high probability of a clinically significant, sudden or life threatening deterioration of the following system(s) required my full and direct attention, intervention and personal management. The time I documented below is in addition to time spent performing reported procedures but includes the following listed in this critical care notation. Medical Decision Making - Medical Records Medical records reviewed: Yes: I reviewed the patient's medical records. - Christian Inquiry Pt receiving controlled substance: No Vital Signs: 05/25/21 08:37 05/25/21 09:15 05/25/21 10:01 Temperature 99.1 F Temperature Source Oral Pulse Rate 121 H 84 Pulse Rate [Left Radial] 120 H Respiratory Rate 20 Blood Pressure 101/64 L 120/61 Blood Pressure [Right Arm] 103/66 L Blood Pressure Mean [Right Arm] 78 Blood Pressure Source [Right Arm] Automatic Cuff Blood Pressure Position [Right Arm] Sitting 02 Sat by Pulse Oximetry 98 95 98 Oxygen Delivery Method Room Air Room Air Room Air - Lab Data Lab results reviewed: Yes: I reviewed the patient's lab results. Orders (Tests/Meds): ED MEDICATIONS Generic Name Dose Route Start Last Admin Trade Name Freq PRN Reason Stop Dose Admin Methocarbamol 500 mg 05/25/21 09:00 05/25/21 09:22 Methocarbamol 500mg Tablet PO 06/24/21 08:59 500 mg BID [place] Administration Discontinued Medications Generic Name Dose Route Start Last Admin Trade Name Rajat PRN Reason Stop Dose Admin Lidocaine 1 each 05/25/21 08:58 05/25/21 09:23 Lidocaine 5% Transdermal Patch TP 05/25/21 08:59 1 each ONCE ONE Administration Medical Decision Narrative: Miss Muir is a 50 yo female w/ PMH for cervical neck pain who presents with neck pain over the last 24 hours. Patient is afebrile and hemodynamically stable. Physical exam no sensory or motor changes. No focal deficits o rvisual changes on exam. Denies any inciting trauma. Differentials to consider include: radiculopathy, MSK pain, low suspicion for vascular process given clinical picture and chronicity of symptoms will not investigate further. No concern for fracture in setting of no trauma. Patient has no red flag signs. Patient is givne lidocaine patch and orbaxin for symptomatic relief. Upon reassessment patient feels improved, however symptoms are not completely relieved. Patient currently has no emergent findings on exam and is deemed appropriate for outpatient therapy. Patient is instructed to discuss w/ her PCP regarding physical therapy. Patient is prescribed flexeril and lidocaine patches. Patient informed to return ofr any symptoms such as weakness, numbness, urinary retention, fecal incontinence or any other concerns. Patient is discharged in stable condition. General Adult HPI - General Chief complaint: PAIN Stated complaint: neck pain Time Seen by Provider: 05/25/21 08:40 Mode of Arrival: Ambulatory Source of Informati
[2021-05-25 10:01] VITALS: BP 120/61; PULSE 84; O2SAT 98
[2021-05-25 10:18] VITALS: BP 95/68; PULSE 95; RESP 18; TEMP 37.3; O2SAT 99
== END 2021-05-25 10:19 | disposition home or self-care (01) ==
PROVIDERS: Emergency Provider Student in an Organized Health Care Education/Training Program; PCP Family Medicine
DX: M54.12 Radiculopathy, cervical region (principal); R20.2 Paresthesia of skin; G89.29 Other chronic pain; F17.210 Nicotine dependence, cigarettes, uncomplicated; Z79.899 Other long term (current) drug therapy; Z88.0 Allergy status to penicillin
CPT/HCPCS: 99281; 99283

== ENCOUNTER → 2022-05-24 09:37 | Outpatient (CLI) | payer OTHER, SELFPAY ==
[2022-05-24 15:06] LABS: Basophils # 0.1 K/mm3 (0-0.2); Basophils % 0.9 % (0.1-2.0); Eosinophils # 0.1 K/mm3 (0.0-0.4); Eosinophils % 1.2 % (0.1-12.0); Hematocrit 45.8 % (37.0-47.0); Hemoglobin 14.7 g/dL (12.2-16.2); Lymphocytes # 2.7 K/mm3 (0.7-4.5); Lymphocytes % 40.7 % (10-50); Mean Corpuscular HGB Conc 32.2 g/dL (31.8-35.4); Mean Corpuscular Hemoglobin 32.6 pg (27.0-31.2); Mean Corpuscular Volume 101.3 fl (81-99); Mean Platelet Volume 9.5 fl (7.4-10.4); Monocytes # 0.3 K/mm3 (0.1-1.0); Monocytes % 4.8 % (1.7-9.3); Neutrophils # 3.5 K/mm3 (1.8-7.8); Neutrophils % 52.5 % (37.0-80.0); Platelet Count 266 K/mm3 (142-424); Red Blood Count 4.52 M/mm3 (4.20-5.40); Red Cell Distribution Width 12.7 % (11.5-17.5); White Blood Count 6.6 K/mm3 (4.8-10.8)
[2022-05-24 15:28] LABS: Alanine Aminotransferase 14 U/L (12-78); Albumin Level 4.1 g/dl (3.5-5.0); Albumin/Globulin Ratio 1.4 (1.1-1.8); Alkaline Phosphatase 99 U/L (38-126); Anion Gap 8.5 mEq/L (5-15); Aspartate Amino Transferase 24 U/L (14-36); Bilirubin,Total 0.7 mg/dl (0.2-1.3); Blood Urea Nitrogen 11 mg/dl (7-17); Carbon Dioxide 27 mmol/L (22.0-30.0); Chloride 108 mmol/L (98-107); Chol/HDL Ratio 5.1 (1-3.5); Cholesterol 240 mg/dl (140-200); Estimated Glomerular Filt Rate 67 ml/min (>60); GFR (African American) 81 ML/MIN (>60); Glucose 92 mg/dl (74-100); HDL Cholesterol 47 mg/dl (40-60); Potassium 4.5 mmoL/L (3.5-5.1); Sodium 139 mmol/L (136-145); Total Protein,Serum 7.1 g/dl (6.3-8.2); Triglycerides 154 mg/dl (30-150); VLDL Cholesterol 31 mg/dL (0-40)
[2022-05-24 15:51] LABS: Direct LDL Cholesterol 139.05 mg/dL (100-129)
[2022-05-24 16:05] LABS: Thyroid Stimulating Hormone 0.65 uIU/mL (0.465-4.68)
[2022-06-08 18:09] LABS: 1,25 Dihydroxy Vitamin D 56 pg/mL (.); 1,25-Dihydroxy, Vitamin D-2 <10 pg/mL (.); 1,25-Dihydroxy, Vitamin D-3 54 pg/mL (.)
== END ==
PROVIDERS: PCP Emergency Medicine; Visit Provider Emergency Medicine
DX: R42 Dizziness and giddiness (principal); R10.9 Unspecified abdominal pain; Z13.220 Encounter for screening for lipoid disorders; E78.00 Pure hypercholesterolemia, unspecified
CPT/HCPCS: 80053; 80061; 82652; 84439; 84443; 85025

== ENCOUNTER 2022-10-04 12:06 | Emergency (ER) | payer OTHER, SELFPAY ==
[2022-10-04] VITALS (8 sets, daily range): BP systolic 100–117; BP diastolic 63–74; PULSE 50–70; RESP 14–18; TEMP 36.7–36.9; O2SAT 95–98; BMI 24.7
--- NOTE | 2022-10-04 12:06 | ECG_ITS ---
APPROVED REPORT Exam: Resting ECG HR:75 bpm ECG Measurements Heart Rate 75 AXES ME 139 P 33 QRSd 90 QRS 60 QT 379 T 55 QTc 409 Conclusion SINUS RHYTHM NORMAL ECG UNCONFIRMED REPORT Electronically signed by : Quique Campos MD 10/04/2022 21:25:03
--- NOTE | 2022-10-04 12:17 | XR_ITS ---
FINAL REPORT CLINICAL HISTORY: Precordial chest pain COMPARISON: 05/19/2018 FINDINGS: A single portable view of the chest was obtained. The heart size and pulmonary vascularity are within normal limits. The mediastinum is within normal limits. No acute pulmonary abnormality is identified. The bony thorax is intact. IMPRESSION: No active cardiopulmonary disease. Reviewed, Interpreted and Dictated by Yusef Mcleod III, MD Transcribed by Monica Kasper Authenticated and . [facility]
[2022-10-04 12:23] LABS: Basophils # 0.1 K/mm3 (0-0.2); Basophils % 0.7 % (0.1-2.0); Chloride 104 mmol/L (98-107); Eosinophils # 0.1 K/mm3 (0.0-0.4); Eosinophils % 0.6 % (0.1-12.0); Hematocrit 47.3 % (37.0-47.0); Lymphocytes # 2.6 K/mm3 (0.7-4.5); Lymphocytes % 29.6 % (10-50); Mean Corpuscular HGB Conc 31.7 g/dL (31.8-35.4); Mean Corpuscular Hemoglobin 31.9 pg (27.0-31.2); Mean Corpuscular Volume 100.6 fl (81-99); Mean Platelet Volume 8.2 fl (7.4-10.4); Monocytes # 0.3 K/mm3 (0.1-1.0); Monocytes % 3.8 % (1.7-9.3); Neutrophils # 5.8 K/mm3 (1.8-7.8); Neutrophils % 65.3 % (37.0-80.0); Platelet Count 230 K/mm3 (142-424); White Blood Count 8.9 K/mm3 (4.8-10.8)
[2022-10-04 12:24] LABS: Potassium 3.8 mmoL/L (3.5-5.1); Sodium 136 mmol/L (136-145)
[2022-10-04 12:26] LABS: Blood Urea Nitrogen 7 mg/dl (7-17); Creatinine Clearance Estimated 72 mL/min (50-200); Estimated Glomerular Filt Rate 66 ml/min (>60); GFR (African American) 80 ML/MIN (>60)
[2022-10-04 12:27] LABS: Anion Gap 9.8 mEq/L (5-15); Calcium 8.5 mg/dl (8.4-10.2); Carbon Dioxide 26 mmol/L (22.0-30.0); Glucose 121 mg/dl (74-100)
[2022-10-04 12:39] LABS: Troponin I < 0.01 ng/ml (0.00-0.034)
--- NOTE | 2022-10-04 12:51 | HMH.EDGENADL ---
Discharge Plan Disposition Patient Disposition: Home, Self-Care Prescriptions Prescriptions: New azithromycin [azithromycin] 500 mg tablet 500 mg PO DAILY Qty: 3 0RF naproxen 500 mg tablet 500 mg PO BID PRN (Reason: pain) Qty: 14 0RF No Action cholecalciferol (vitamin D3) 25 mcg (1,000 unit) capsule 1,000 unit PO DAILY PRN (Reason: Supplement) Referrals Follow up/Referrals: Provider,Referral, MD [Primary Care Provider] - See instructions Activity Restrictions/Add. Instructions Additional Instructions/Restrictions: Return for worsening cough chest pain difficulty breathing or any other concerns within the next 8 hours otherwise follow-up with your primary care physician within next few days Clinical Impressions Clinical Impression: Chest pain Discharge ED Provider: Vicente Lindsey General Adult HPI General Chief complaint: Chest Pain Stated complaint: chest pain Time Seen by Provider: 10/04/22 12:10 Mode of Arrival: Ambulatory Source of Information: Patient Limitations: No Limitations Description of Symptoms (Recalled from ER Triage Doc. by RN): Pt reports aching type chest pain on L side of chest, reports pain has worsened since yesterday. Pt reports pain radiating to L shoulder. Pt denies SOA. History of Present Illness HPI narrative: 52-year-old female presents with bilateral chest pain worse on the left side that is worsened since yesterday. She says it is constant worse with deep breathing radiating to her left shoulder denies shortness of breath. She does have a cough for 4 days as well mildly productive. No abdominal pain nausea vomiting headache diarrhea. No cough no blood or prior pulmonary embolism or DVT. Pain does not radiate to the back was not tearing or ripping. Related Data Home Medications Medication Instructions Recorded Confirmed cholecalciferol (vitamin D3) 25 1,000 unit PO DAILY PRN Supplement 11/23/21 10/04/22 mcg (1,000 unit) capsule Previous Rx's Medication Instructions Recorded azithromycin 500 mg tablet 500 mg PO DAILY #3 tabs 10/04/22 naproxen 500 mg tablet 500 mg PO BID PRN pain #14 tabs 10/04/22 Allergies Allergy/AdvReac Type Severity Reaction Status Date / Time Penicillins Allergy Verified 05/24/22 09:24 [facility] Disclaimer: The information contained in this section may have been updated after the patient was seen, as this information can be updated by other users. Social History Smoking Status: Current every day smoker tobacco type: cigarettes packs per day: 1 alcohol intake: never substance use type: denies use current occupational status: retired Travel in the last 8 weeks: Inside the [place] caffeine: Yes ROS Obtained: Yes All systems reviewed & no additional complaints except as documented Constitutional Constitutional: Denies fatigue Eyes Eyes: Denies diplopia ENT Ears, Nose, Mouth, and Throat: Denies dizziness Cardiovascular Cardiovascular: Denies dyspnea and Denies leg edema Respiratory Respiratory: Denies dyspnea Gastrointestinal Gastrointestingal: Denies coffee ground emesis Genitourinary Female Genitourinary: Denies flank pain Musculoskeletal Musculoskeletal: Denies joint stiffness Integumentary/Breasts Skin/Breast: Denies furuncle Neurologic Neurologic: Denies dizziness Endocrine Endocrine: Denies fatigue Hematologic/Lymphatic Henatologic/Lymphatic: Denies easy bleeding Allergic/Immunologic Allergic/Immunologic: Denies urticaria Physical Exam General General appearance: alert and in no apparent distress Eye Eye exam: Present PERRL and EOMI ENT ENT exam: Present normal exam and normal oropharynx Neck Neck exam: Present normal inspection Chest Chest inspection: Present symmetric chest wall rise Respiratory Respiratory exam: Present normal lung sounds bilaterally; Absent respiratory distress Cardiovascular Cardiovascular exam: Present re
--- NOTE | 2022-10-04 14:15 | PC.NURSE ---
rounded on pt, pt states not needs at this time. updated pt on POC
== END 2022-10-04 15:10 | disposition home or self-care (01) ==
PROVIDERS: Emergency Provider Emergency Medicine
DX: R07.9 Chest pain, unspecified (principal); M25.512 Pain in left shoulder; F17.210 Nicotine dependence, cigarettes, uncomplicated
CPT/HCPCS: 71045; 80048; 84484; 85025; 93005; 99285

== ENCOUNTER → 2022-12-16 16:57 | Outpatient (CLI) | payer OTHER, SELFPAY ==
[2022-12-16 15:02] LABS: Chol/HDL Ratio 6.7 (1-3.5); Cholesterol 261 mg/dl (140-200); HDL Cholesterol 39 mg/dl (40-60); Triglycerides 215 mg/dl (30-150); VLDL Cholesterol 43 mg/dL (0-40)
[2022-12-16 15:12] LABS: Direct LDL Cholesterol 148.43 mg/dL (100-129)
[2022-12-16 15:53] LABS: Vitamin B12 768 pg/mL (239-931)
[2022-12-18 09:59] LABS: FSH 27.2 mIU/mL (.); LH 31.7 mIU/mL (.); Progesterone 0.4 ng/mL (.)
[2022-12-23 16:12] LABS: Estrogen 208 pg/mL (.)
== END ==
LOC: LAB.DROPOF 16:58
PROVIDERS: PCP Emergency Medicine; Visit Provider Emergency Medicine
DX: R53.83 Other fatigue (principal); E55.9 Vitamin D deficiency, unspecified; E78.5 Hyperlipidemia, unspecified; N95.9 Unspecified menopausal and perimenopausal disorder
CPT/HCPCS: 80061; 82306; 82607; 82672; 83001; 83002; 84144

== ENCOUNTER 2023-04-13 17:02 | Outpatient (CLI) | payer OTHER, SELFPAY ==
[2023-04-13 13:18] LABS: Alanine Aminotransferase 20 U/L (12-78); Albumin/Globulin Ratio 1.5 (1.1-1.8); Alkaline Phosphatase 85 U/L (38-126); Anion Gap 8.5 mEq/L (5-15); Aspartate Amino Transferase 26 U/L (14-36); Bilirubin,Total 0.6 mg/dl (0.2-1.3); Blood Urea Nitrogen 13 mg/dl (7-17); Calcium 8.7 mg/dl (8.4-10.2); Carbon Dioxide 27 mmol/L (22.0-30.0); Chloride 106 mmol/L (98-107); Chol/HDL Ratio 3.5 (1-3.5); Cholesterol 181 mg/dl (140-200); Estimated Glomerular Filt Rate 66 ml/min (>60); GFR (African American) 80 ML/MIN (>60); Globulin 2.7 g/dL (1.3-3.2); Glucose 85 mg/dl (74-100); HDL Cholesterol 51 mg/dl (40-60); Potassium 4.5 mmoL/L (3.5-5.1); Sodium 137 mmol/L (136-145); Total Protein,Serum 6.7 g/dl (6.3-8.2); Triglycerides 123 mg/dl (30-150); VLDL Cholesterol 25 mg/dL (0-40)
[2023-04-13 13:29] LABS: Direct LDL Cholesterol 90.41 mg/dL (100-129)
[2023-04-13 13:51] LABS: Thyroid Stimulating Hormone 0.35 uIU/mL (0.465-4.68)
[2023-04-13 17:14] LABS: Iron 133 ug/dL (37-170)
[2023-04-13 17:24] LABS: Total Iron Binding Capacity 326 ug/dL (265-497)
[2023-04-14 10:25] LABS: Free Thyroxine Index 2.9 ug/dL (5.93-13.13); T4 (Thyroxine) 9.5 ug/dl (5.53-11.0); Triiodothryronine (T3) Uptake 30 % (23.5-40.5)
[2023-04-14 10:38] LABS: Thyroid Stimulating Hormone 0.36 uIU/mL (0.465-4.68)
== END 2023-04-13 23:59 ==
LOC: LAB.DROPOF 17:02
PROVIDERS: PCP Family Medicine; Visit Provider Family Medicine
DX: E78.5 Hyperlipidemia, unspecified (principal); M75.21 Bicipital tendinitis, right shoulder; M25.612 Stiffness of left shoulder, not elsewhere classified; M25.611 Stiffness of right shoulder, not elsewhere classified
CPT/HCPCS: 80053; 80061; 82306; 83540; 83550; 84436; 84443; 84479

== ENCOUNTER 2023-04-14 10:30 | Outpatient (CLI) | payer OTHER, SELFPAY | END 2023-04-14 23:59 | LOC: LAB.DROPOF 04-22 10:31 | PROVIDERS: PCP Family Medicine; Visit Provider Family Medicine | DX: R79.89 Other specified abnormal findings of blood chemistry (principal); R53.83 Other fatigue | CPT/HCPCS: 84436; 84443; 84479 ==

== ENCOUNTER 2023-04-26 09:52 | Outpatient (CLI) | payer OTHER, SELFPAY ==
--- NOTE | 2023-04-26 09:55 | XR_ITS ---
FINAL REPORT CLINICAL HISTORY: right shoulder pain FINDINGS: 3 views of the right shoulder were obtained. There is no acute fracture or dislocation. There is mild AC joint arthrosis. There are no soft tissue abnormalities. IMPRESSION: No acute process. Reviewed, Interpreted and Dictated by Yusef Mcleod III, MD Transcribed by Froilan Diane Authenticated and . [facility]
== END 2023-04-26 23:59 ==
LOC: RAD 09:53
PROVIDERS: PCP Physician Assistant; Visit Provider Orthopaedic Surgery
DX: M25.511 Pain in right shoulder (principal); M25.512 Pain in left shoulder
CPT/HCPCS: 73030

== ENCOUNTER 2023-07-05 08:37 | Outpatient (CLI) | payer OTHER, SELFPAY ==
[2023-07-05 09:24] LABS: Chol/HDL Ratio 4.3 (1-3.5); Cholesterol 244 mg/dl (140-200); HDL Cholesterol 57 mg/dl (40-60); Triglycerides 118 mg/dl (30-150); VLDL Cholesterol 24 mg/dL (0-40)
[2023-07-05 09:35] LABS: Direct LDL Cholesterol 115.46 mg/dL (100-129); Intact Parathyroid Hormone 58.6 pg/mL (7.5-53.5)
[2023-07-05 09:40] LABS: T4 (Thyroxine) 10.3 ug/dl (5.53-11.0); Triiodothryronine (T3) Uptake 29 % (23.5-40.5)
[2023-07-05 09:53] LABS: Thyroid Stimulating Hormone 0.85 uIU/mL (0.465-4.68)
[2023-07-05 10:13] LABS: Vitamin B12 729 pg/mL (239-931)
== END 2023-07-05 23:59 ==
LOC: LAB 08:38
PROVIDERS: PCP Family Medicine; Visit Provider Family Medicine
DX: E06.9 Thyroiditis, unspecified (principal); R79.89 Other specified abnormal findings of blood chemistry; R53.83 Other fatigue; E78.00 Pure hypercholesterolemia, unspecified
CPT/HCPCS: 36415; 80061; 82607; 83970; 84436; 84443; 84479

== ENCOUNTER 2023-07-13 14:56 | Outpatient (CLI) | payer OTHER, SELFPAY ==
--- NOTE | 2023-07-13 14:56 | US_ITS ---
FINAL REPORT TECHNIQUE: Real-time grayscale and color ultrasound of the soft tissues of the neck was performed. CLINICAL HISTORY: enlarged lymph COMPARISON: None FINDINGS: Ultrasound images of the area of concern were obtained. Color Doppler images were submitted. The submandibular glands appear within normal limits. There are small nodes which have a normal appearance. There is no evidence of mass or fluid collection. IMPRESSION: Unremarkable exam. Reviewed, Interpreted and Dictated by Yusef Mcleod III, MD Transcribed by Monica Kasper Authenticated and [facility]
== END 2023-07-13 23:59 ==
LOC: RAD 14:56
PROVIDERS: PCP Family Medicine; Visit Provider Family Medicine
DX: R59.0 Localized enlarged lymph nodes (principal)
CPT/HCPCS: 76536

== ENCOUNTER 2023-08-02 11:17 | Emergency (ER) | payer OTHER, SELFPAY ==
[2023-08-02 11:40] VITALS: BP 110/74; PULSE 83; RESP 19; TEMP 36.9; O2SAT 99; BMI 23.9
--- NOTE | 2023-08-02 11:58 | ED_ITS ---
Discharge Plan Disposition Patient Disposition: Home, Self-Care Condition: Good Prescriptions Prescriptions: New azithromycin [Zithromax Z-Jimbo] 250 mg tablet See Rx Instructions .ROUTE .COMPLEX 5 Days Qty: 6 0RF Rx Instructions: For 250 mg dose pack: take 500 mg today (day 1), then 250 mg for 4 days (days 2-5) benzonatate 100 mg capsule 100 mg PO TID PRN (Reason: cough) Qty: 30 0RF methylprednisolone [Medrol (Jimbo)] 4 mg tablets,dose pack See Rx Instructions .Route .COMPLEX 6 Days Qty: 21 0RF Rx Instructions: taper pack; guaifenesin [Mucinex] 600 mg tablet extended release 12hr 600 mg PO BID PRN (Reason: cough) Qty: 20 0RF No Action ezetimibe 10 mg tablet 10 mg PO DAILY Qty: 30 2RF Referrals Follow up/Referrals: Celia Bhakta APRN [Primary Care Provider] - See instructions Activity Restrictions/Add. Instructions Additional Instructions/Restrictions: * Start antibiotic today. Be sure to complete entire prescription even if feeling better * Monitor temp. Tylenol every 4 hours as needed and / or ibuprofen every 6 hours as needed ( As long as your primary care physician has told you that it ok to take both. For fever/aches/pains ER if no less than 101 despite Tylenol or Motrin * Humidifier/vaporizer or hot steamy shower * Mucinex during the day for your cough and cough suppressant only at [facility]. Be sure to drink lots of water. Insurance may not cover a prescriptions for mucinex. Might be cheaper to get 400mg tablets and take 2 tablet in the morning, mid-day and evening with lots of water. *Tessalon Perles will not cause drowsiness but use at bedtime to help stop cough so that you may get some rest. *Start steroid today. Helps with inflammation therefore, cough and wheezing. Follow directions on the package. Reviewed side effects. Patient reports taking them before. Follow up IMMEDIATELY for new or worsening of symptoms OR no noticeable improvement over the next 48-72 hours. 911 immediately for any life threatening symptoms such as chest pain or difficulty breathing Clinical Impressions Clinical Impression: Sinusitis Instructions Patient Instructions: DI for Sinusitis, Sinusitis Discharge ED Provider: Niya Bullock [facility] HPI General Stated complaint: cough Mode of Arrival: Ambulatory Source of Information: Patient Limitations: No Limitations Time Seen by Provider: 08/02/23 11:58 Description of Symptoms (Recalled from Triage Doc. by RN): Pt's symptoms are productive cough, sinus pressure, congestion, and sore throat. HEENT Symptoms (Recalled from RN notes): Yes Resp Symptoms (Recalled from RN notes): No Skin Symptoms (Recalled from RN notes): No MS Symptoms (Recalled from RN notes): No Functional Status (Recalled from RN notes): n/a History of Present Illness Provider Complaint: Patient states that she has been having sinus pain and pressure, cough that is productive at times, drianage in the back of her throat and making her throat feels scratchy so today when it wasnt any better she came in to get checked Related Data Previous Rx's Medication Instructions Recorded ezetimibe 10 mg tablet 10 mg PO DAILY #30 tabs 07/07/23 azithromycin 250 mg tablet See Rx Instructions PO .COMPLEX 5 08/02/23 (Zithromax Z-Jimbo) days #6 tabs benzonatate 100 mg capsule 100 mg PO TID PRN cough #30 caps 08/02/23 guaifenesin 600 mg tablet, 600 mg PO BID PRN cough #20 tabs 08/02/23 extended release 12 hr (Mucinex) methylprednisolone 4 mg tablets in See Rx Instructions .Route 08/02/23 a dose pack (Medrol (Jimbo)) .COMPLEX 6 days #21 tabs Allergies Allergy/AdvReac Type Severity Reaction Status Date / Time Penicillins Allergy Verified 08/02/23 11:56 Worker's Comp Is this a Worker's Comp case?: [facility] Disclaimer: The information contained in this section may have been updated after the patient was seen, as this information can be updated by other users. Medical History Chest pain Acute sinusitis Social History Smoking Status: Current every day smoker tobacco type: cigarettes packs per day: 1 alcohol intake: never substance use type: denies use current occupational status: retired Travel in the last 8 weeks: Inside the [place] caffeine: Yes ROS Obtained: Yes All systems reviewed & no additional complaints except as doc umented and Yes Systems reviewed as appropriate & no additional complaints except as documented Constitutional Constitutional: Reports system reviewed and no additional complaints, except as documented and Reports as per HPI ENT Ears, Nose, Mouth, and Throat: Reports system reviewed and no additional complaints, except as documented, Reports as per HPI, Reports sinus pain and Reports sinus pressure Cardiovascular Cardiovascular: Reports system reviewed and no additional complaints, except as documented and Reports as per HPI Respiratory Respiratory: Reports system reviewed and no additional complaints, except as documented and Reports as per HPI Gastrointestinal Gastrointestingal: Reports system reviewed and no additional complaints, except as documented and as per HPI Physical Exam General General appearance: alert and in no apparent distress ENT ENT exam: Present mucous membranes moist Expanded ENT Exam Nose exam: Present sinus tenderness Throat exam: Present other (Pharyngeal erythema noted with PND) Respiratory Respiratory exam: Present normal lung sounds bilaterally; Absent respiratory d istress or wheezes Cardiovascular Cardiovascular exam: Present regular rate, normal rhythm and normal heart sounds Neurological Exam Neurological exam: Present alert, oriented X3 and normal gait Medical Decision Making Christian Inquiry Pt receiving controlled substance: No Christian was queried for this patient: No Vital Signs: 08/02/23 11:40 Temperature 98.5 F Temperature Source Oral Pulse Rate [Right Radial] 83 Respiratory Rate 19 Blood Pressure [Right Arm] 110/74 Blood Pressure Mean [Right Arm] 86 Blood Pressure Source [Right Arm] Automatic Cuff Blood Pressure Position [Right Arm] Sitting 02 Sat by Pulse Oximetry 99 Oxygen Delivery Method Room Air Medical Decision Narrative: Patient states that she has take azithromycin and medrol in the past without complications or reactions
[2023-08-02 12:19] VITALS: BP 110/74; PULSE 83; RESP 19; TEMP 36.9; O2SAT 99
== END 2023-08-02 12:18 | disposition home or self-care (01) ==
PROVIDERS: Emergency Provider Nurse Practitioner; PCP Family Medicine
DX: J01.90 Acute sinusitis, unspecified (principal); R05.9 Cough, unspecified; R09.82 Postnasal drip; R07.0 Pain in throat; F17.210 Nicotine dependence, cigarettes, uncomplicated
CPT/HCPCS: 99212; 99214; G0463

== ENCOUNTER 2024-01-25 14:18 | Emergency (ER) | payer OTHER, SELFPAY ==
--- NOTE | 2024-01-25 14:17 | ECG_ITS ---
APPROVED REPORT Exam: Resting ECG HR:75 bpm ECG Measurements Heart Rate 75 AXES FL 142 P 53 QRSd 90 QRS 76 QT 364 T 68 QTc 393 Conclusion SINUS RHYTHM NORMAL ECG UNCONFIRMED REPORT Electronically signed by : ERON JACINTO, 01/26/2024 00:30:42
[2024-01-25 14:21] VITALS: BP 128/84; PULSE 80; RESP 18; TEMP 37; O2SAT 98; BMI 23.8
--- NOTE | 2024-01-25 14:24 | PC.NURSE ---
Garret MEDINA at [facility] for pt eval
--- NOTE | 2024-01-25 14:26 | ED_ITS ---
<Statement entered by Mouna Marie DO - 01/25/24 23:27> I was consulted by the ANA, and we discussed the complexity of the problems being addressed. I approved the treatment and management plan for this patient's care in the emergency department, thus performing a substantive portion of the medical decision making. Mouna Marie DO Discharge Plan Disposition Patient Disposition: Home, Self-Care Condition: Good Prescriptions Prescriptions: No Action No Known Home Medications Referrals Follow up/Referrals: Provider,Referral, MD [Referring] - See instructions Activity Restrictions/Add. Instructions Additional Instructions/Restrictions: Please follow-up with your PCP for continued or worsening symptoms or return to ER as needed. I recommend taking Tylenol alternating every 4 hours with Motrin for symptoms. Clinical Impressions Clinical Impression: Chest pain Qualifiers: Chest pain type: unspecified Qualified Code(s): R07.9 - Chest pain, unspecified Instructions Patient Instructions: DI for Chest Pain Print Language Print Language: Upper Sorbian Discharge ED Provider: Mouna Marie HPI <CURT Johnson - Last Filed: 01/25/24 16:11> General Chief Complaint: Chest Pain Stated Complaint: chest pain Time Seen by Provider: 01/25/24 14:26 History of Present Illness HPI narrative: Patient presents for evaluation of chest pain. Patient gives a history of 5 days of left-sided chest discomfort. She denies any known trauma or provoking injury. It initially at baseline and feels like a ache or stitch with coughing or sneezing causing pain over the area. She denies any headache diaphoresis nausea vomiting diarrhea fever chills hemoptysis hematochezia melena. Patient has no known cardiac history but does have a history of hyperlipidemia and is on no home medications daily. Pain does not radiate Related Data Home Medications ?Medication ?Instructions ?Recorded ?Confirmed No Known Home Medications 01/25/24 01/25/24 Allergies Allergy/AdvReac Type Severity Reaction Status Date / Time Penicillins Allergy Hives Verified 01/25/24 14:21 PFSH <CURT Johnson - Last Filed: 01/25/24 16:11> [facility] Disclaimer: The information contained in this section may have been updated after the patient was seen, as this information can be updated by other users. Medical History Chest pain Acute sinusitis Social History Smoking Status: Current every day smoker tobacco type: cigarettes packs per day: 1 alcohol intake: never substance use type: denies use current occupational status: retired Travel in the last 8 weeks: Inside the [place] caffeine: Yes Other Medical History Have you received the Flu Vaccine for this season: No Have you received the Pneumonia Vaccine: No <CURT Johnson - Last Filed: 01/25/24 16:11> ROS Obtained: Yes Systems reviewed as appropriate & no additional complaints except as documented Physical Exam <CURT Johnson - Last Filed: 01/25/24 16:11> General General appearance: alert and in no apparent distress Respiratory Respiratory exam: Present normal lung sounds bilaterally Cardiovascular Cardiovascular exam: Present regular rate Neurological Exam Neurological exam: Present alert and oriented X3 HEART Score <CURT Johnson - Last Filed: 01/25/24 16:11> HEART Score HEART Score assessment performed?: No History (anamnesis): Slightly suspicious ECG: Normal Age: 45-65 years Risk factors: 1-2 risk factors Troponin: </= normal limit HEART Score: 2 <Mouna Marie DO - Last Filed: 01/25/24 15:52> HEART Score HEART Score: 2 Critical Care <CURT Johnson - Last Filed: 01/25/24 16:11> Critical Care Time Critical Care Time: No Medical Decision Making <CURT Johnson - Last Filed: 01/25/24 16:11> Medical Records Medical records reviewed: Yes I reviewed the patient's medical records. Christian Inquiry Pt receiving controlled substance: No Vital Signs Vital Signs: 01/25/24 14:21 01/25/24 14:30 01/25/24 15:00 Temperature 98.6 F Temperature Source Oral Pulse Rate 67 60 Pulse Rate [Right Brachial] 80 Respiratory Rate 18 17 Blood Pressure 106/74 L 98/66 L Blood Pressure [Right Arm] 128/84 Blood Pressure Mean [Right Arm] 98 Blood Pressure Source Blood Pressure Source [Right Arm] Automatic Cuff Blood Pressure Position Blood Pressure Position [Right Arm] Sitting 02 Sat by Pulse Oximetry 98 98 97 Oxygen Delivery Method Room Air Room Air Room Air 01/25/24 15:30 01/25/24 15:55 Temperature 98.0 F Temperature Source Oral Pulse Rate 59 L 64 Pulse Rate [Right Brachial] Respiratory Rate 14 Blood Pressure 112/70 112/70 Blood Pressure [Right Arm] Blood Pressure Mean [Right Arm] Blood Pressure Source Automatic Cuff Blood Pressure Source [Right Arm] Blood Pressure Position Sitting Blood Pressure Position [Right Arm] 02 Sat by Pulse Oximetry 98 Oxygen Delivery Method Room Air Lab Data Lab results reviewed: Yes I reviewed the patient's lab results. Labs: Lab Results 01/25/24 14:20: WBC 6.5, RBC 4.70, Hgb 15.3, Hct 44.8, MCV 95.3, MCH 32.4 H, MCHC 34.0, RDW 12.7, Plt Count 216, MPV 8.0, Neut % (Auto) 52.7, Lymph % (Auto) 38.1, Baca % (Auto) 4.1, Eos % (Auto) 3.5, Baso % (Auto) 1.6, Neut # (Auto) 3.4, Lymph # (Auto) 2.5, Baca # (Auto) 0.3, Eos # (Auto) 0.2, Baso # (Auto) 0.1, PT 10.6, INR 0.94, D-Dimer 0.46, Sodium 136, Potassium 3.5, Chloride 107, Carbon Dioxide 30, Anion Gap 2.5 L, BUN 13, Creatinine 1.00, Estimated Creat Clear 62, Estimated GFR 58 L, Est GFR ( Amer) 71, Glucose 101 H, Calcium 9.3, Total Bilirubin 0.7, AST 26, ALT 18, Alkaline Phosphatase 94, Troponin I < 0.01, Total Protein 7.3, Albumin 4.1, Globulin 3.2, Albumin/Globulin Ratio 1.3, Lipase 107 01/25/24 14:20 01/25/24 14:20 Response Orders (Tests/Meds): ED MEDICATIONS Discontinued Medications Generic Name Dose Route Start Last Admin Trade Name Freq PRN Reason Stop Dose Admin Acetaminophen 1,000 mg 01/25/24 14:26 01/25/24 14:31 Acetaminophen 500mg Tab PO 01/25/24 14:27 1,000 mg ONCE ONE Administration Belladonna Alkaloids 60 ml 01/25/24 14:26 01/25/24 14:36 Belladonna Alkaloids 60 Ml Ml PO 01/25/24 14:27 Not Given ONCE ONE Ketorolac Tromethamine 15 mg 01/25/24 14:26 01/25/24 14:36 Ketorolac 30mg/Ml Vial IV 01/25/24 14:27 Not Given ONCE ONE ORDERS Category Date Time Status Chest XR 2 view (NOT portable) [XR chest 2V] Stat Exams 01/25/24 14:27 Taken CBC w/Auto Diff [Complete Blood Count Auto Diff] Stat Lab 01/25/24 14:20 Completed CMP [Comprehensive Metabolic Panel] Stat Lab 01/25/24 14:20 Completed D-Dimer Stat Lab 01/25/24 14:20 Completed HIV (1&2) Antibody Rapid Stat Lab 01/25/24 14:20 Received Hep C Ab with Reflex to RNA Stat Lab 01/25/24 14:20 Received INR [Prothrombin Time INR] Stat Lab 01/25/24 14:20 Completed Lipase Stat Lab 01/25/24 14:20 Completed Trop I [Troponin I] Stat Lab 01/25/24 14:20 Completed MDM Narrative Medical Decision Narrative: In summary patient is a 53-year-old female who presents to the emergency department for evaluation of chest pain. Patient is hemodynamically stable upon arrival, afebrile. Physical exam is remarkable for nonreproducible chest pain with normal breath sounds normal heart sounds sinus rhythm on the bedside monitor no epigastric tenderness normal bowel sounds. Differential diagnosis includes ACS versus PE versus costochondral pain versus gastrointestinal cause etc. Initial workup will be conducted with hematologic labs, chest x-ray, twelve-lead EKG. Initial interventions include Tylenol Toradol GI cocktail. Initial workup reviewed by me shows that her hematologic labs are nonactionable, troponin is undetectable, and my informal interpretation of plain film x-ray shows no acute processes. Upon repeat evaluation patient has had no change in her symptoms however she declined Toradol and GI cocktail.. Given this we have essentially ruled out any serious or life-threatening problem although we do not have a good understanding of what is the source of her discomfort as patient is comfortable following up with her PCP for further evaluation should her persist or worsen or return to the ER as needed. <Mouna Marie, DO - Last Filed: 01/25/24 15:52> Vital Signs Vital Signs: 01/25/24 14:21 01/25/24 14:30 01/25/24 15:00 Temperature 98.6 F Temperature Source Oral Pulse Rate 67 60 Pulse Rate [Right Brachial] 80 Respiratory Rate 18 17 Blood Pressure 106/74 L 98/66 L Blood Pressure [Right Arm] 128/84 Blood Pressure Mean [Right Arm] 98 Blood Pressure Source Blood Pressure Source [Right Arm] Automatic Cuff Blood Pressure Position Blood Pressure Position [Right Arm] Sitting 02 Sat by Pulse Oximetry 98 98 97 Oxygen Delivery Method Room Air Room Air Room Air 01/25/24 15:30 01/25/24 15:55 Temperature 98.0 F Temperature Source Oral Pulse Rate 59 L 64 Pulse Rate [Right Brachial] Respiratory Rate 14 Blood Pressure 112/70 112/70 Blood Pressure [Right Arm] Blood Pressure Mean [Right Arm] Blood Pressure Source Automatic Cuff Blood Pressure Source [Right Arm] Blood Pressure Position Sitting Blood Pressure Position [Right Arm] 02 Sat by Pulse Oximetry 98 Oxygen Delivery Method Room Air Lab Data Labs: Lab Results 01/25/24 14:20: WBC 6.5, RBC 4.70, Hgb 15.3, Hct 44.8, MCV 95.3, MCH 32.4 H, MCHC 34.0, RDW 12.7, Plt Count 216, MPV 8.0, Neut % (Auto) 52.7, Lymph % (Auto) 38.1, Baca % (Auto) 4.1, Eos % (Auto) 3.5, Baso % (Auto) 1.6, Neut # (Auto) 3.4, Lymph # (Auto) 2.5, Baca # (Auto) 0.3, Eos # (Auto) 0.2, Baso # (Auto) 0.1, PT 10.6, INR 0.94, D-Dimer 0.46, Sodium 136, Potassium 3.5, Chloride 107, Carbon Dioxide 30, Anion Gap 2.5 L, BUN 13, Creatinine 1.00, Estimated Creat Clear 62, Estimated GFR 58 L, Est GFR ( Amer) 71, Glucose 101 H, Calcium 9.3, Total Bilirubin 0.7, AST 26, ALT 18, Alkaline Phosphatase 94, Troponin I < 0.01, Total Protein 7.3, Albumin 4.1, Globulin 3.2, Albumin/Globulin Ratio 1.3, Lipase 107 Response Orders (Tests/Meds): ED MEDICATIONS Discontinued Medications Generic Name Dose Route Start Last Admin Trade Name Rajat PRN Reason Stop Dose Admin Acetaminophen 1,000 mg 01/25/24 14:26 01/25/24 14:31 Acetaminophen 500mg Tab PO 01/25/24 14:27 1,000 mg ONCE ONE Administration Belladonna Alkaloids 60 ml 01/25/24 14:26 01/25/24 14:36 Belladonna Alkaloids 60 Ml Ml PO 01/25/24 14:27 Not Given ONCE ONE Ketorolac Tromethamine 15 mg 01/25/24 14:26 01/25/24 14:36 Ketorolac 30mg/Ml Vial IV 01/25/24 14:27 Not Given ONCE ONE ORDERS Category Date Time Status Chest XR 2 view (NOT portable) [XR chest 2V] Stat Exams 01/25/24 14:27 Taken CBC w/Auto Diff [Complete Blood Count Auto Diff] Stat Lab 01/25/24 14:20 Completed CMP [Comprehensive Metabolic Panel] Stat Lab 01/25/24 14:20 Completed D-Dimer Stat Lab 01/25/24 14:20 Completed HIV (1&2) Antibody Rapid Stat Lab 01/25/24 14:20 Received Hep C Ab with Reflex to RNA Stat Lab 01/25/24 14:20 Received INR [Prothrombin Time INR] Stat Lab 01/25/24 14:20 Completed Lipase Stat Lab 01/25/24 14:20 Completed Trop I [Troponin I] Stat Lab 01/25/24 14:20 Completed
--- NOTE | 2024-01-25 14:27 | XR_ITS ---
FINAL REPORT CLINICAL HISTORY: Left sided chest pain. COMPARISON: 10/01/2022 FINDINGS: TWO-VIEW CHEST The heart size is normal. The mediastinum is normal. The lungs are clear. There is no pneumothorax. IMPRESSION: No acute cardiopulmonary process. Reviewed, Interpreted and Dictated by Shalom Green MD Transcribed by Marixa Montes De Oca Authenticated and [facility]
[2024-01-25 14:30] VITALS: BP 106/74; PULSE 67; RESP 17; O2SAT 98
[2024-01-25] MEDS: ACETAMINOPHEN 500MG TAB 1000 MG PO (14:31)
[2024-01-25 14:40] LABS: INR 0.94 (0.9-1.1); Prothrombin Time 10.6 seconds (10.1-12.5)
[2024-01-25 14:45] LABS: Basophils # 0.1 K/mm3 (0-0.2); Basophils % 1.6 % (0.1-2.0); Eosinophils # 0.2 K/mm3 (0.0-0.4); Eosinophils % 3.5 % (0.1-12.0); Hematocrit 44.8 % (37.0-47.0); Hemoglobin 15.3 g/dL (12.2-16.2); Lymphocytes # 2.5 K/mm3 (0.7-4.5); Lymphocytes % 38.1 % (10-50); Mean Corpuscular Hemoglobin 32.4 pg (27.0-31.2); Mean Corpuscular Volume 95.3 fl (81-99); Monocytes # 0.3 K/mm3 (0.1-1.0); Monocytes % 4.1 % (1.7-9.3); Neutrophils # 3.4 K/mm3 (1.8-7.8); Neutrophils % 52.7 % (37.0-80.0); Platelet Count 216 K/mm3 (142-424); Red Cell Distribution Width 12.7 % (11.5-17.5); White Blood Count 6.5 K/mm3 (4.8-10.8)
[2024-01-25 14:55] LABS: Alanine Aminotransferase 18 U/L (12-78); Albumin Level 4.1 g/dl (3.5-5.0); Albumin/Globulin Ratio 1.3 (1.1-1.8); Alkaline Phosphatase 94 U/L (38-126); Anion Gap 2.5 mEq/L (5-15); Aspartate Amino Transferase 26 U/L (14-36); Bilirubin,Total 0.7 mg/dl (0.2-1.3); Blood Urea Nitrogen 13 mg/dl (7-17); Calcium 9.3 mg/dl (8.4-10.2); Carbon Dioxide 30 mmol/L (22.0-30.0); Chloride 107 mmol/L (98-107); Creatinine Clearance Estimated 62 mL/min (50-200); Estimated Glomerular Filt Rate 58 ml/min (>60); GFR (African American) 71 ML/MIN (>60); Globulin 3.2 g/dL (1.3-3.2); Glucose 101 mg/dl (74-100); Lipase 107 U/L (23-300); Potassium 3.5 mmoL/L (3.5-5.1); Sodium 136 mmol/L (136-145); Total Protein,Serum 7.3 g/dl (6.3-8.2)
[2024-01-25 15:00] VITALS: BP 98/66; PULSE 60; O2SAT 97
[2024-01-25 15:01] LABS: D-Dimer 0.46 ug/mL (0.0-0.5)
[2024-01-25 15:07] LABS: Troponin I < 0.01 ng/ml (0.00-0.034)
[2024-01-25 15:30] VITALS: BP 112/70; PULSE 59; O2SAT 98
--- NOTE | 2024-01-25 15:33 | PC.NURSE ---
Don at BS to update pt on results and current POC
[2024-01-25 15:55] VITALS: BP 112/70; PULSE 64; RESP 14; TEMP 36.7; O2SAT 100
[2024-01-25 18:13] LABS: HIV (1&2) Antibody Rapid NONREACTIVE (NONREACTIVE)
[2024-01-26 09:39] LABS: HCV Ab Non Reactive (Non Reactive)
== END 2024-01-25 15:59 | disposition home or self-care (01) ==
PROVIDERS: Physician Assistant; Emergency Provider Emergency Medicine; PCP Family Medicine
DX: R07.9 Chest pain, unspecified (principal)
CPT/HCPCS: 71046; 80053; 83690; 84484; 85025; 85378; 85610; 86803; 87389; 93005; 96374; 99285

== ENCOUNTER 2024-03-27 16:29 | Emergency (ER) | payer OTHER, SELFPAY ==
[2024-03-27 16:40] VITALS: BP 112/65; PULSE 53; RESP 16; TEMP 36.8; O2SAT 98; BMI 23.6
--- NOTE | 2024-03-27 17:03 | EXP.UTC ---
Discharge Plan Disposition Patient Disposition: Home, Self-Care Condition: Good Prescriptions Prescriptions: New azithromycin [Zithromax Z-Jimbo] 250 mg tablet See Rx Instructions .ROUTE .COMPLEX 5 Days Qty: 6 0RF Rx Instructions: For 250 mg dose pack: take 500 mg today (day 1), then 250 mg for 4 days (days 2-5) benzonatate 100 mg capsule 100 mg PO TID PRN (Reason: cough) Qty: 30 0RF methylprednisolone [Medrol (Jimbo)] 4 mg tablets,dose pack See Rx Instructions .Route .COMPLEX 6 Days Qty: 21 0RF Rx Instructions: taper pack; Referrals Follow up/Referrals: Celia Bhakta APRN [Primary Care Provider] - See instructions Activity Restrictions/Add. Instructions Additional Instructions/Restrictions: *Monitor Temp, Over the counter Motrin or Tylenol as directed/as needed Tylenol every 4 hours and Motrin every 6 hours (as long as your family doctor has told you that you can take it) for fever or pain. and straight to ER if unable to lower temp less than 101.0 after medication given *Warm salt water gargles may help to soothe the throat *Throat Lozenges? *Warm fluids like tea with honey may help to soothe the throat? *Sleep elevated *Humidifier/Vaporizer Follow up IMMEDIATELY for new or worsening symptoms or no Noticeable improvement over the next 48-72 hours. 911 for difficulty breathing or swallowing Clinical Impressions Clinical Impression: Sinusitis Instructions Patient Instructions: DI for Sinusitis, Sinusitis Print Language Print Language: Tajik Discharge ED Provider: Niya Bullock [facility] General Stated complaint: runny nose,headache,pressure in head Mode of Arrival: Ambulatory Source of Information: Patient Limitations: No Limitations Time Seen by Provider: 03/27/24 17:11 Description of Symptoms (Recalled from Triage Doc. by RN): PATIENT C/O SINUS PRESSURE AND DRAINAGE X 3 DAYS HEENT Symptoms (Recalled from RN notes): Yes Resp Symptoms (Recalled from RN notes): No Skin Symptoms (Recalled from RN notes): No MS Symptoms (Recalled from RN notes): No Functional Status (Recalled from RN notes): WNL History of Present Illness Provider Complaint: Patient states that she is having sinus pain and pressure and pressure behind her eyes that has got worse over the last few days States today she wasnt feeling any better and the drainage in the back of her throat was worse so she came in Related Data Previous Rx's ?Medication ?Instructions ?Recorded azithromycin 250 mg tablet See Rx Instructions PO .COMPLEX 5 03/27/24 (Zithromax Z-Jimbo) days #6 tabs benzonatate 100 mg capsule 100 mg PO TID PRN cough #30 caps 03/27/24 methylprednisolone 4 mg tablets in See Rx Instructions .Route 03/27/24 a dose pack (Medrol (Jimbo)) .COMPLEX 6 days #21 tabs Allergies Allergy/AdvReac Type Severity Reaction Status Date / Time Penicillins Allergy Hives Verified 01/25/24 14:21 Worker's Comp Is this a Worker's Comp case?: No [facility] Disclaimer: The information contained in this section may have been updated after the patient was seen, as this information can be updated by other users. Medical History Chest pain Acute sinusitis Social History Smoking Status: Current every day smoker tobacco type: cigarettes packs per day: 1 alcohol intake: never substance use type: denies use current occupational status: retired Travel in the last 8 weeks: Inside the [place] caffeine: Yes Have you lived/traveled outside [place] in past 30 days?: No Contact w/someone who lives/traveled outside [place] past 30 days?: No Exposure to someone with infectious disease in past 14 days?: No Do you have a fever (greater than 100.4 F or 38 C)?: No Have you tested positive for COVID-19: No Exposed to someone with COVID-19 in past 14 days?: No Do you have a sore throat?: No Do you have a cough?: No Do you have any weakness?: No Do you have any diarrhea?: No Are you experiencing any unusual bleeding?: No Do you have any muscle aches/pain?: Yes Do you have any abdominal pain?: No Are you experiencing loss of taste or smell?: No ROS Obtained: Yes All systems reviewed & no additional complaints except as documented and Yes Systems reviewed as appropriate & no additional complaints except as documented Constitutional Constitutional: Reports system reviewed and no additional complaints, except as documented and Reports as per HPI Eyes Eyes: Reports system reviewed and no additional complaints, except as documented and Reports as per HPI ENT Ears, Nose, Mouth, and Throat: Reports system reviewed and no additional complaints, except as documented, Reports as per HPI, Reports sinus pain and Reports sinus pressure Cardiovascular Cardiovascular: Reports system reviewed and no additional complaints, except as documented and Reports as per HPI Respiratory Respiratory: Reports system reviewed and no additional complaints, except as documented and Reports as per HPI Gastrointestinal Gastrointestingal: Reports system reviewed and no additional complaints, except as documented and as per HPI Physical Exam General General appearance: alert and in no apparent distress ENT ENT exam: Present mucous membranes moist Expanded ENT Exam Nose exam: Present sinus tenderness Throat exam: Present other (Pharyngeal erythema noted with PND) Respiratory Respiratory exam: Present normal lung sounds bilaterally; Absent respiratory distress or wheezes Cardiovascular Cardiovascular exam: Present regular rate, normal rhythm and normal heart sounds Neurological Exam Neurological exam: Present alert, oriented X3 and normal gait Medical Decision Making Medical Records Screening: Per USPSTF and CDC recommendations, given the prevalence of disease in our region, it is our hospital?s policy to screen for HIV and viral Hepatitis for all patients aged 18 and over and those with ongoing risk factors. Christian Inquiry Pt receiving controlled substance: No Christian was queried for this patient: No Vital Signs: 03/27/24 16:40 Temperature 98.2 F Temperature Source Oral Pulse Rate [Left Brachial] 53 L Respiratory Rate 16 Blood Pressure [Left Arm] 112/65 Blood Pressure Mean [Left Arm] 80 Blood Pressure Source [Left Arm] Automatic Cuff Blood Pressure Position [Left Arm] Sitting 02 Sat by Pulse Oximetry 98 Oxygen Delivery Method Room Air
[2024-03-27 17:23] VITALS: BP 112/65; PULSE 53; RESP 16; TEMP 36.8; O2SAT 98
== END 2024-03-27 17:27 | disposition home or self-care (01) ==
PROVIDERS: Emergency Provider Nurse Practitioner; PCP Family Medicine
DX: J32.9 Chronic sinusitis, unspecified (principal)
CPT/HCPCS: 99213; G0381

== ENCOUNTER 2024-07-17 10:35 | Outpatient (CLI) | payer OTHER, SELFPAY ==
[2024-07-17 19:08] LABS: Basophils % 0.5 % (0.1-2.0); Eosinophils # 0.1 K/mm3 (0.0-0.4); Eosinophils % 1.2 % (0.1-12.0); Hematocrit 44.1 % (37.0-47.0); Hemoglobin 14.4 g/dL (12.2-16.2); Lymphocytes # 2.7 K/mm3 (0.7-4.5); Lymphocytes % 46.7 % (10-50); Mean Corpuscular HGB Conc 32.7 g/dL (31.8-35.4); Mean Corpuscular Hemoglobin 31.4 pg (27.0-31.2); Mean Corpuscular Volume 96.3 fl (81-99); Mean Platelet Volume 10.9 fl (7.4-10.4); Monocytes # 0.3 K/mm3 (0.1-1.0); Monocytes % 5.2 % (1.7-9.3); Neutrophils # 2.7 K/mm3 (1.8-7.8); Neutrophils % 46.4 % (37.0-80.0); Platelet Count 204 K/mm3 (142-424); Red Blood Count 4.58 M/mm3 (4.20-5.40); Red Cell Distribution Width 12.5 % (11.5-17.5); White Blood Count 5.7 K/mm3 (4.8-10.8)
[2024-07-17 19:32] LABS: Alanine Aminotransferase 14 U/L (12-78); Albumin Level 4.1 g/dl (3.5-5.0); Albumin/Globulin Ratio 1.3 (1.1-1.8); Alkaline Phosphatase 126 U/L (38-126); Anion Gap 15.3 mEq/L (5-15); Aspartate Amino Transferase 22 U/L (14-36); Bilirubin,Total 0.8 mg/dl (0.2-1.3); Blood Urea Nitrogen 15 mg/dl (7-17); Calcium 9.4 mg/dl (8.4-10.2); Carbon Dioxide 25 mmol/L (22.0-30.0); Chloride 105 mmol/L (98-107); Cholesterol 262 mg/dl (140-200); Estimated Glomerular Filt Rate 47 ml/min (>60); GFR (African American) 57 ML/MIN (>60); Globulin 3.1 g/dL (1.3-3.2); Glucose 80 mg/dl (74-100); HDL Cholesterol 65 mg/dl (40-60); Potassium 4.3 mmoL/L (3.5-5.1); Sodium 141 mmol/L (136-145); Total Protein,Serum 7.2 g/dl (6.3-8.2); Triglycerides 191 mg/dl (30-150); VLDL Cholesterol 38 mg/dL (0-40)
[2024-07-17 19:43] LABS: Direct LDL Cholesterol 127.17 mg/dL (100-129)
[2024-07-17 19:54] LABS: 25-OH Vitamin D, Total 48.6 ng/mL (30-100)
[2024-07-17 20:05] LABS: Thyroid Stimulating Hormone 0.29 uIU/mL (0.465-4.68)
== END 2024-07-17 23:59 | disposition home or self-care (01) ==
LOC: LAB.DROPOF 07-18 09:20
PROVIDERS: PCP Nurse Practitioner Family; Visit Provider Nurse Practitioner Family
DX: E78.00 Pure hypercholesterolemia, unspecified (principal); E06.9 Thyroiditis, unspecified; R79.89 Other specified abnormal findings of blood chemistry
CPT/HCPCS: 80053; 80061; 82306; 84443; 85025

== ENCOUNTER 2025-01-30 12:52 | Outpatient (CLI) | payer OTHER, SELFPAY ==
--- NOTE | 2025-01-30 13:00 | US_ITS ---
FINAL REPORT CLINICAL HISTORY: Bilat neck nodules FINDINGS: Limited sonographic images were obtained of the soft tissues of the neck bilaterally of the area of reported abnormality. There is normal appearance of the submandibular and parotid glands. There is an 8 x 5 x 3 mm soft tissue nodule in the region of the swelling compatible with a normal sized lymph node. No mass or enlarged lymph node identified. IMPRESSION: Normal appearance of a small lymph node in the region of palpable abnormality. No further follow-up imaging needed unless is palpable abnormality progresses or a larger lesion is suspected on physical exam. Reviewed, Interpreted and Dictated by Hossein Cristina MD Transcribed by Monica Kasper Authenticated and [facility]
--- OUTSIDE RECORDS SUMMARY | 2025-01-30 13:42 | XMS_ITS | Clinical Summary ---
Author Organization Healthcare Address 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 Name Role Phone Nhi Mcdonnell Primary Care Provider [phone] Allergies Active Allergy Reactions Criticality Noted Date Comments Penicillins Rash,Unknown - Patie nt states they do not know rxn details Low 07/25/2014 Medications cholecalciferol (Vitamin D-3) 50 MCG (1999) capsule TAKE 4 CAPSULE Daily 0 Active atorvastatin (Lipitor) 10 MG tablet TAKE 1 TABLET BY MOUTH AT BEDTIME NIGHTLY FOR ELEVATED CHOLESTEROL 3 Active Active Problems Problem Noted Date Diagnosed Date Low TSH level 05/09/2023 Pharyngoesophageal dysphagia 05/09/2023 Hyperthyroidism 05/09/2023 Tinea versicolor 08/17/2021 Bunion of great toe of left foot 08/17/2021 Allergic rhinitis 01/01/2016 Hyperlipidemia 07/25/2014 Resolved Problems Problem Noted Date Diagnosed Date Resolved Date Other fatigue 05/09/2023 12/30/2024 Muscle weakness 05/09/2023 12/30/2024 Immunizations Immunization Administration Dates Next Due Tdap 05/17/2016 Family History Medical History Relation Name Comments Diabetes type II Father Heart failure Father Conversions - Other Mother Kidney c arcinoma Diabetes type II Mother Lung cancer Mother Diabetes type II Sister Relation Name Status Comments Father Mother Sister Social History Tobacco Use Types Packs/Day Years Used Date Smoking Tobacco: Every Day Cigarettes Smokeless Tobacco: Never Tobacco Cessation:Ready to Q uit: Not Asked; Counseling Given: Not Answered Alcohol Use Standard Drinks/Week Comments Never 0 (1 standard drink = 0.6 oz pur e alcohol) PHQ-2 Answer Date Recorded Patient Health Questionnaire-2 Score 0 05/29/2021 Comments Unknown Sex and Gender Information Value Date Recorded Sex Assigned at Not on file Legal Sex Female 6:16 PM EDT Gender Identity Not on file Sexual Orientation Not on file Last Filed Vital Signs Vital Sign Reading Time Taken Comments Blood Pressure 126/85 05/09/2023 2:02 PM EST Pulse 85 05/09/2023 2:02 PM EST Temperature 37.1 C (98.7 F) 03/31/2020 3:48 PM EST Respiratory Rate 14 02/02/2019 9:13 AM EDT Oxygen Saturation 97% 10/29/2021 3:02 PM EDT Inhaled Oxygen Concentration - - Weight 59.5 kg (131 lb 2.8 oz) 05/09/2023 2:02 P M EST Height 157.5 cm (5' 2 ) 05/09/2023 2:02 PM EST Body Mass Index 23.99 05/09/2023 2:02 PM EST Plan of Treatment Health Maintenance Due Date Last Done Comments [facility]-HIV Screening 1970 [facility]-/Child/Adol SDOH Screenings 1970 [facility]- SDOH Screenings 1990 [facility]-Adult SDOH Screenings 1990 [facility]-Hepatitis B Vaccines (1 of 3 - 19+ 3-dose series) 07/22/1991 [facility]-Pneumococcal Vaccine: 50 + Years (1 of 2 - PCV) 07/22/1991 CT Colonography 2017 Colonoscopy 2017 FIT-DNA 2017 FIT 2017 FOBT 2017 Sigmoidoscopy 2017 [facility]-Colorectal Cancer Screening 2017 [facility]-Pap Smear 11/01/2020 11/01/2017, 07/25/2014 [facility]-Depression Screening 05/29/2022 05/29/2021 [facility]-Breast Cancer Screening 2022 [facility]-Zoster Vaccines (1 of 2) 2022 [facility]-Cervical Cancer Screening 11/01/2022 [facility]-HPV/Cotest 11/01/2022 11/01/2017, 11/01/2017, 07/25/2014 [id number] Vaccine ( season) 2024 [facility]-Influenza Vaccine (#1) 2024 [facility]-DTaP,Tdap,and Td Vaccine s (2 - Td or Tdap) 05/17/2026 05/17/2016 [facility]-Hepatitis C Screening Completed 05/17/2016 [facility]-Diabetes: Hemoglobin A1C Discontinued 10/29/2021 HPV Vaccines Aged Out No longer eligi ble based on patient's age to complete this topic [facility]-HIB Vaccines Aged Out No longer e ligible based on patient's age to complete this topic [facility]-Hepatitis A Vaccines Aged Out No longer eligible based on patient's age to complete this topic [facility]-IPV Vaccines Aged Out No longer e ligible based on patient's age to complete this topic [facility]-Rotavirus Vaccines Aged Out No lo nger eligible based on patient's age to complete this topic Procedures Procedure Name Priority Date/Time Associated Diagnosis Comments HEMOGLOBIN A1C Routine 10/29/2021 3:25 PM EDT Healthcare maintenance CYTO DATA CONVERSION Routine 11/01/2017 12:00 AM EDT ACUTE HEPATITIS PANEL Routine 05/17/2016 9:22 AM EST from Last 3 Months or Most Recently Relevant to Health Maintenance Results * (ABNORMAL) Hemoglobin A1c (10/29/2021 3:25 PM EDT) Hemoglobin A1c 5.7(H) <5.7 % 10/29/2021 6:57 PM EDT [facility] Blood Venous blood specimen / Unknown Venipuncture / Unknown 10/29/2021 3:25 PM EDT 10/29/2021 3:25 PM EDT Narrative [facility] - 10/29/2021 6:57 PM EDT HA1C Interpretive Data: Diagnosis of Diabetes: Diabetic > or = 6.5% Pre-diabetic 5.7 to 6.4% Non-diabetic < or = 5.6% Glycemic Targets for Type I and Type II Diabetics: Non- Adults <7.0% Adults <6.0% Children and Adolescents <7.5% Source: [place] [employer]. Standards of medical care in diabetes,2017. Diabetes Care.2017:40 (suppl 1):S1-S135. HbA1c assay performed by an ion-exchange chromatography method that is certified traceable to the DCCT. us Yary Laws NUCLEAR EQUIPMENT DESIGN ENGINEER LAB BLOOD ORDERABLES Final Re sult [facility] [address] [place] [address] * Cytology (11/01/2017 12:00 AM EDT) 11/01/2017 11/02/2017 1:5 5 PM EDT Narrative [facility] - 11/04/2017 12:53 PM EDT [facility] MR #: [id number] [facility] YAZAN MUIR [place], [place] [address] 1970 (Age: 47) FU Collect Date: 11/01/2017 00:00 Receipt Date: 11/02/2017 13:55 Page 1 DEPARTMENT OF PATHOLOGY AND LABORATORY MEDICINE CYTOPATHOLOGY REPORT Email: [phone] ATTENDING MD/Practitioner: Dawna Castro MD Service: [facility] Location: [facility] Reported: 11/04/2017 12:53 Collected: 11/01/2017 00:00 INTERPRETATION A. THIN PREP (CERVICAL/VAGINAL): NEGATIVE FOR INTRAEPITHELIAL LESION OR MALIGNANCY. SATISFACTORY FOR EVALUATION; ENDOCERVICAL/ TRANSFORMATION ZONE COMPONENT PRESENT. Slide scanned and imaged by [employer] ThinPrep Imaging System with manual review of all selected granado. Please see the ASCCP website (www.asccp.org) for followup recommendations. Correlation with the results of HPV testing is also suggested (please call Microbiology at [phone] for results). Electronically Signed Out By ALLIE Odonnell (ASCP) ALLIE Odonnell (ASCP) Cervical cytology is a screening test primarily for squamous cancers and precursors and has associated false negative and positive results. New technologies such as liquid based sampling may decrease but will not eliminate all false negative results. Regular screening and follow-up of unexplained clinical signs and symptoms are recommended to minimize false negative results. Please see the ASCCP website (www.asccp.org) for followup recommendations. If HPV testing was requested, correlation with the results is suggested (please call Microbiology at [phone] for results). CLINICAL INFORMATION: Menstrual History: Cyclic Date of Last Menstrual Period: {Not Provided} Contraceptive History: Depo Other Clinical Conditions: HPV testing requested. SPECIMEN DESCRIPTION: A: THIN PREP (CERVICAL/VAGINAL) THIN PREP PROCESS CELLULAR ENHANCEMENT ICD: F: A; RT IMAGE [id number] SNOMED CODES: A; [id number] In cases where a pathologist has signed out the report, the service has been rendered in part by a resident. The signing pathologist has performed and is responsible for the reported pathologic evaluation. us Destiny Castro MD LAB PATHOLOGY ORDERABLES Arlene l Result [facility] * Acute Hepatitis Panel (05/17/2016 9:22 AM EST) Hepatitis B Surf Antigen NEGATIVE Reference Value: Negative [facility] Hepatitis C Antibody NEGATIVE Reference Range: Negative [facility] Hepatitis A Antibody IgM NEGATIVE Reference Value: Negative [facility] External Hepatitis B Core IgM (HBCM) NEGATIVE Reference Value: Negative [facility] 05/17/2016 9:22 AM EST 05/17/2016 12:48 PM EST us Destiny Castro MD LAB BLOOD ORDERABLES Final Re sult Performing Organization Address City/State/[facility] Co de Phone Number [facility] from Last 3 Months or Most Recently Relevant to Health Maintenance Insurance [employer] [facility] MEDICA[employer] Care Teams Airplane Rigger Relationship Specialty Start Date End Date Nhi Mcdonnell PA [address] [place] [address] PCP - General 05/09/23
--- OUTSIDE RECORDS SUMMARY | 2025-01-30 13:42 | XMS_ITS | Encounter Summary ---
Author Organization Healthcare Address [address] [place] [address] Care Team Providers Care Research Fellow Name Role Phone Destiny Castro MD Primary Care Provider [phone] Nhi Mcdonnell Primary Care Provider [phone] Encounter Details Date Type Department Care Team (Late st Contact Info) Description 05/29/2021 Outside Procedure External Location [address] [place] [address] Yary Laws, STRATEGY SPECIALIST [address] [place] [address] Social History Tobacco Use Types Packs/Day Years Used Date Smoking Tobacco: Every Day Cigarettes Smokeless Tobacco: Never Alcohol Use Standard Drinks/Week Comments Never 0 (1 standard drink = 0.6 oz pur e alcohol) PHQ-2 Answer Date Recorded Patient Health Questionnaire-2 Score 0 05/29/2021 Comments Unknown Sex and Gender Information Value Date Recorded Sex Assigned at Not on file Legal Sex Female 6:16 PM EDT Gender Identity Not on file Sexual Orientation Not on file COVID-19 Exposure Response Date Recorded In the last month, have you been in contact with someone who was confirmed or suspected to have Coronavirus / COVID-19? Unable to assess 05/29/2021 2:58 PM EST documented as of this encounter Functional Status * Over the past 2 weeks, how often have you been bothered by any of the following problems? Question Answer Date of Assessment Author Little interest or pleasure in doing things Not at all 05/29/2021 3:03 PM EST Houma, Cathy R Feeling down, depressed, or hopeless Not at all 05/12 3:03 PM EST Davie, Cathy R Patient Health Questionnaire-2 Score 0 05/12 3:03 PM EST Davie, Cathy R * Calculated C-SSRS Risk Score (Lifetime/Recent) Answer Date of Assessment Author No Risk Indicated 05/29/2021 3:03 PM EST Houma, Ch asity R * Question Answer Date of Assessment Author 1. Wish to be (Past 1 Month) No 022 3:03 PM EST Davie, Cathy R 2. Non-Specific Active Suici luc Thoughts (Past 1 Month) No 05/29/2021 3:03 PM EST Davie, Cathy R 6. Suicidal Behavior (Lifetime) No 3:03 PM EST Davie, Cathy R documented as of this encounter Plan of Treatment Not on file documented as of this encounter Procedures Procedure Name Priority Date/Time Associated Diagnosis Comments XR CERVICAL SPINE 2 OR 3 VIEWS 05/29/2021 3:44 PM EST documented in this encounter Results * XR Cervical Spine 2 or 3 Views (05/29/2021 3:44 PM EST) Anatomical Region Laterality Modality Spine, C-spine Radiographic Azra ging 05/29/2021 3:44 PM EST Narrative 05/29/2021 5:26 [place] [address] Name: YAZAN MUIR Exam Date: 05/29/2021 : 1970 Age 50 Gender: F Physician: YARY LAWS Facility: [facility] Facility HSV: Outpatient Exam: CERVICAL SPINE 2 TO 3V Cervical spine radiographs 4 VIEW HISTORY: Neck pain. FINDINGS: No acute compression deformity or malalignment. Vertebral body heights are within normal limit. Facet joints are anatomically aligned. Disc spaces are well-maintained. Prevertebral soft tissues are unremarkable. C1-C2 articulation is intact. IMPRESSION: No acute bony abnormality or malalignment. Dictated By: Aurelio Valenzuela Transcribed By: Aurelio Whyte Transcribed On: 05/29/2021 5:15 PM Electronically signed by: Aurelio Valenzuela 05/29/2021 Thank you for referring YAZAN MUIR to [facility]. Legally authenticated by DARSHAN ADAMS 2021-05-29 17:15:56 Procedure Note Provider, [facility] - 05/29/[address] [address] Name: YAZAN MUIR Exam Date: 05/29/2021 : 1970 Age 50 Gender: F Physician: YARY LAWS Facility: [facility] Facility HSV: Outpatient Exam: CERVICAL SPINE 2 TO 3V Cervical spine radiographs 4 VIEW HISTORY: Neck pain. FINDINGS: No acute compression deformity or malalignment. Vertebral body heightsare within normal limit. Facet joints are anatomically aligned. Disc spacesare well-maintained. Prevertebral soft tissues are unremarkable. C1-C2 articulation is intact. IMPRESSION: No acute bony abnormality or malalignment. Dictated By: Aurelio Valenzuela Transcribed By: Aurelio Whyte Transcribed On: 05/29/2021 5:15 PM Electronically signed by: Aurelio Valenzuela 05/29/2021 Thank you for referring YAZAN MUIR to [facility]. Legally authenticated by DARSHAN ADAMS 2021-05-29 17:15:56 us Yary Laws STRATEGY SPECIALIST IMG XR PROCEDURES Final Resul t documented in this encounter Visit Diagnoses Not on filedocumented in this encounter Care Teams Research Fellow Relationship Specialty Start Date End Date Destiny Castro MD [address] [place] [id number] PCP - General 08/22/20 05/08/23 Nhi Mcdonnell PA [address] [place] [address] PCP - General 05/09/23 documented as of this encounter
== END 2025-01-30 23:59 | disposition home or self-care (01) ==
LOC: RAD 12:52
PROVIDERS: PCP Nurse Practitioner Family; Visit Provider Nurse Practitioner Family
DX: R22.1 Localized swelling, mass and lump, neck (principal)
CPT/HCPCS: 76536